=== PATIENT | female | born 1955 | race Caucasian/White ===

== ENCOUNTER 2020-03-27 12:40 | Inpatient (IN) | payer MEDICARE, SELFPAY ==
[~2020-03-27] VITALS: Ht 167.6 cm; Wt 86.2 kg
[~2020-03-27 12:40] MED LIST: OXYBUTYNIN CHLOR5 MG PO
[2020-03-27] MEDS ORDERED: MORPHINE SULFATE 2 MG/ML SYR 1ML IV STA (12:49)
[2020-03-27] MEDS ORDERED: SODIUM CHLORIDE 0.9% 1000ML 1,000 ML IV STA ×2 (12:49→16:02)
[2020-03-27] MEDS ORDERED: ONDANSETRON HCL INJ 2MG/ML 2ML 2 MG/ML VIAL IV STA (12:49)
[2020-03-27] MEDS ORDERED: PANTOPRAZOLE 40 MG 10ML VIAL IV STA (12:49)
[2020-03-27] MEDS ORDERED: PIPER-TAZ 3.375 GM 50 ML IV ONE (13:00)
[2020-03-27 14:20] LABS: BASOPHILS % 0.5 % (0.0-1.0); HEMATOCRIT 40.9 % (34.2-44.1); HEMOGLOBIN 13.1 g/dL (12.0-16.0); LYMPHOCYTES # (AUTO) 0.4 (1.0-3.2); LYMPHOCYTES % 10.2 % (18.0-39.1); MEAN CORPUSCULAR HEMOGLOBIN 29.4 pg (28-32); MEAN CORPUSCULAR VOLUME 91.7 fL (81-99); MONOCYTES # (AUTO) 0.3 (0.2-0.8); MONOCYTES % 6.4 % (4.4-11.3); NEUTROPHILS # (AUTO) 3.5 (2.1-6.9); NEUTROPHILS % 82.4 % (38.7-80.0); PLATELET COUNT 284 x10e3/uL (140-360); RED BLOOD COUNT 4.46 x10e6/uL (3.6-5.1); RED CELL DISTRIBUTION WIDTH 13.2 % (11.7-14.4)
[2020-03-27 14:31] LABS: INR 1.02
[2020-03-27 14:32] LABS: PARTIAL THROMBOPLASTIN TIME 32.7 seconds (23.8-35.5)
[2020-03-27 14:42] LABS: ALANINE AMINOTRANSFERASE 25 IU/L (0-55); ALBUMIN 2.9 g/dL (3.5-5.0); ALBUMIN/GLOBULIN RATIO 0.7 (0.8-2.0); ALKALINE PHOSPHATASE 458 IU/L (40-150); BLOOD UREA NITROGEN 16 mg/dL (7-26); BUN/CREATININE RATIO 11 (6-25); CALCIUM 9.8 mg/dL (8.4-10.2); CARBON DIOXIDE 15 mmol/L (22-29); CHLORIDE 98 mmol/L (98-107); CREATINE KINASE 58 IU/L (29-168); CREATININE, SERUM 1.45 mg/dL (0.57-1.11); EST GLOMERULAR FILTRATION RATE 36 ML/MIN (60-); GLUCOSE 164 mg/dL (74-118); MAGNESIUM 1.8 MG/DL (1.3-2.1); SODIUM 130 mmol/L (136-145)
[2020-03-27 14:46] LABS: LIPASE < 4 U/L (8-78)
[2020-03-27] MEDS ORDERED: DIATRIZOATE MEGL/DIATRIZOA SOD 30 ML BTL PO ONE (14:59)
[2020-03-27 15:11] LABS: BAND NEUTROPHILS % (MANUAL) 7 %; LYMPHOCYTES % (MANUAL) 15 % (19-48); MONOCYTES % (MANUAL) 2 % (3.4-9.0); NEUTROPHILS % (MANUAL) 76 % (40-74); PLATELET ESTIMATE ADEQUATE; PLATELET MORPHOLOGY COMMENT NORMAL; RBC MORPHOLOGY COMMENT NORMAL
--- NOTE | 2020-03-27 16:02 | Diagnostic Imaging Report ---
EXAMINATION: CHEST SINGLE (PORTABLE) INDICATION: ^abd pain ^[id number] ^1500 COMPARISON: 09/03/2013 FINDINGS: AP view TUBES and LINES: None. LUNGS: Lungs are well inflated. There is no evidence of pneumonia or pulmonary edema. PLEURA: No pleural effusion or pneumothorax. HEART AND MEDIASTINUM: The cardiomediastinal silhouette is unremarkable. BONES AND SOFT TISSUES: No acute osseous lesion. Soft tissues are unremarkable. UPPER ABDOMEN: No free air under the diaphragm. IMPRESSION: No acute thoracic abnormality. Signed by: Dr. Bennett Mohr MD on 03/27/2020 3:58 PM
[2020-03-27] MEDS ORDERED: SODIUM CHLORIDE 0.9% 1000ML 1,000 ML ONE ×3 (16:06→19:29)
--- NOTE | 2020-03-27 16:58 | NUR ---
{null, bladder scanner revealed 27 cc urine in bladder }
--- NOTE | 2020-03-27 17:35 | Diagnostic Imaging Report ---
EXAM: CT Abdomen and Pelvis WITHOUT contrast INDICATION: ^N/V, DIFFUSE ABD PAIN ^[id number] ^1610 COMPARISON: None. TECHNIQUE: Abdomen and pelvis were scanned utilizing a multidetector helical scanner from the lung base to the pubic symphysis without administration of IV contrast. Absence of intravenous contrast decreases sensitivity for detection of focal lesions and vascular pathology. Coronal and sagittal reformations were obtained. Routine protocol was performed. IV CONTRAST: None ORAL CONTRAST: Gastrografin COMPLICATIONS: None RADIATION DOSE: Total DLP: 547.4 mGy*cm Estimated effective dose: (DLP x 0.015 x size factor) mSv CTDIvol has been reviewed. It is below the limits set by the Radiation Protocol Committee (RPC). FINDINGS: LINES and TUBES: Tony catheter. LOWER THORAX: Trace pericardial fluid versus thickening. Otherwise, unremarkable. HEPATOBILIARY: Unenhanced liver is unremarkable. No biliary ductal dilation. GALLBLADDER: Distended gallbladder. No radio-opaque stones or sludge. No wall thickening. SPLEEN: No splenomegaly. PANCREAS: Atrophic. No focal masses or ductal dilatation. ADRENALS: No adrenal nodules KIDNEYS/URETERS: Left nephrectomy. Lobulated right renal contour, likely due to areas of scarring, especially in the superior pole. No hydronephrosis. No right renal stone. GI TRACT: No abnormal distention, wall thickening, or evidence of bowel obstruction. Featureless less colon, especially descending colon. Appendix is not clearly visualized. PELVIC ORGANS/BLADDER: Bladder is collapsed by a Tony catheter in place. Hysterectomy. Ill-defined area in the pelvis with thick-walled structure (series 2, image 72) and possible fistulous connection to the adjacent bowel loops (series 2, image 73). LYMPH NODES: No lymphadenopathy. VESSELS: There is mild atherosclerotic disease in the aorta and major arterial branches. PERITONEUM / RETROPERITONEUM: Moderate pneumoperitoneum. Small volume ascites. BONES: Generalized demineralization. SOFT TISSUES: Unremarkable. IMPRESSION: 1. Limited study without intravenous contrast. 2. Moderate pneumoperitoneum without definite identifiable source. The indeterminate thick-walled structure in the pelvis with questionable fistulous connections to the adjacent bowel loops could be the source of pneumoperitoneum. 3. Featureless colon with mild wall thickening, could be related to inflammatory bowel disease. 4. Small volume ascites. 5. Distended gallbladder without radiopaque gallstones or wall thickening. Findings discussed with Dr. Rios at 5:12 PM, on 03/27/2020. Signed by: Dr. Bennett Mohr MD on 03/27/2020 5:31 PM
[2020-03-27] MEDS: METRONIDAZOLE 500MG/NS 100ML 100 ML IV SCH ×2 (17:40→19:07)
[2020-03-27] MEDS ORDERED: MORPHINE SULFATE 2 MG/ML SYR 1ML IV PRN (17:45)
[2020-03-27] MEDS ORDERED: SODIUM CHLORIDE 0.9% 1000ML 1,000 ML IV SCH ×3 (17:45→19:45)
[2020-03-27] MEDS ORDERED: ONDANSETRON HCL INJ 2MG/ML 2ML 2 MG/ML VIAL IV PRN (17:45)
--- OUTSIDE RECORDS SUMMARY | 2020-03-27 17:57 | XMS REPORT ---
Author Author [facility] Organization [facility] Address Unknown Phone Unavailable Care Team Providers Care Remote Sensing Program Manager Name Role Phone Alexis CANNON Unavailable Unavailable Problems This patient has no known problems. Allergies, Adverse Reactions, Alerts This patient has no known allergies or adverse reactions. Medications This patient has no known medications. Results Test Description Test Time Test Comments Text Results Atomic Results Result Comments CT ABDOMEN/PELVIS WO 2020-03-27 17:09:00 [facility] [address] [address] Patient Name: JAMES COX MR #: [id number] : 1955 Age/Sex: 65/F Req #: [id number] Adm Physician: Ordered by: PEG CANNON MD Report #: [id number] Location: ER Room/Bed: Procedure: [id number] CT/CT ABDOMEN/PELVIS WO Exam Date: 03/27/20 Exam Time: 1609 REPORT STATUS: Signed EXAM: CT Abdomen and Pelvis WITHOUT contrast INDICATION: N/V, DIFFUSE ABD PAIN [id number] COMPARISON: None. TECHNIQUE: Abdomen and pelvis were scanned utilizing a multidetector helical scanner from the lung base to the pubic symphysis wit hout administration of IV contrast. Absence of intravenous contrast decreases sensitivity for detection of focal lesions and vascular pathology. Coronal and sagittal reformations were obtained. Routine protocol was performed. IV CONTRAST: None ORAL CONTRAST: Gastrografin COMPLICATIONS: None RADIATION DOSE: Total DLP: 547.4 mGy*cm Estimated effective dose: (DLP x 0.015 x size factor) mSv CTDIvol has been reviewed. It is below the limits set by the Radiation Protocol Committee (RPC). FINDINGS: LINES and TUBES: Tony catheter. LOWER THORAX: Trace pericardial fluid versus thickening. Otherwise, unremarkable. HEPATOBILIARY: Unenhanced liver is unremarkable. No biliary ductal dilation. GALLBLADDER: Distended gallbladder. No radio-opaque stones or sludge. No wall thickening. SPLEEN: No splenomegaly. PANCREAS: Atrophic. No focal masses or ductal dilatation. ADRENALS: No adrenal nodules KIDNEYS/URETERS: Left nephrectomy. Lobulated right renal contour, likely due to areas of scarring, especially in the superior pole. No hydronephrosis. No right renal stone. GI TRACT: No abnormal distention, wall thickening, or evidence of bowel obstruction. Featureless less colon, especially descending colon. Appendix is not clearly visualized. PELVIC ORGANS/BLADDER: Bladd er is collapsed by a Tony catheter in place. Hysterectomy. Ill-defined area in the pelvis with thick-walled structure (series 2, image 72) and possible fistulous connection to the adjacent bowel loops (series 2, image 73). LYMPH NODES: No lymphadenopathy. VESSELS: There is mild atherosclerotic disease in the aorta and major arterial branches. PERITONEUM / RETROPERITONEUM: Moderate pneumoperitoneum. Small volume ascites. BONES: Generalized demineralization. SOFT TISSUES: Unremarkable. IMPRESSION: 1. Limited study without intravenous contrast. 2. Moderate pneumoperitoneum without definite identifiable source. The indeterminate thick-walled structure in the pelvis with questionable fistulous connections to the adjacent bowel loops could be the source of pneumoperitoneum. 3. Featureless colon with mild wall thickening, could be related to inflammatory bowel disease. 4. Small volume ascites. 5. Distended gallbladder without radiopaque gallstones or wall thickening. Findings discussed with Dr. Cannon at 5:12 PM, on 03/27/2020. Signed by: Dr. Bennett Post MD on 03/27/2020 5:31 PM Dictated By: BENNETT POST MD 30 Transcribed By: LUZMARIA on 03/27/201730 COPY TO: PEG CANNON MD CHEST SINGLE (PORTABLE) 2020-03-27 15:58:[address] [address] Patient Name: JAMES COX MR #: [id number] : 1955 Age/Sex: 65/F Req #: [id number] Adm Physician: Ordered by: PEG CANNON MD Report #: [id number] Location: ER Room/Bed: Procedure: [id number] DX/CHEST SINGLE (PORTABLE) Exam Date: 03/27/20 Exam Time: 1500 REPORT STATUS: Signed EXAMINATION: CHEST SINGLE (PORTABLE) INDICATION: abd pain [id number] COMPARISON: 09/03/2013 FINDINGS: AP view TUBES and LINES: None. LUNGS: Lungs are well inflated. There is no evidence of pneumonia or pulmonary edema. PLEURA: No pleural effusion or pneumothorax. HEART AND MEDIASTINUM: The cardiomediastinal silhouette is unremarkable. BONES AND SOFT TISSUES: No acute osseous lesion. Soft tissues are unremarkable. UPPER ABDOMEN: No free air under the diaphragm. IMPRESSION: No acute thoracic abnormality. Signed by: Dr. Bennett Post MD on 03/27/2020 3:58 PM Dictated By: BENNETT POST MD [id number] Transcribed By: LUZMARIA on 03/27/20 [id number] COPY TO: PEG CANNON MD
[2020-03-27] MEDS ORDERED: BENZOCAINE/TETRACAINE/BUTAMBEN AERO SPRAY 56 GM CAN TOP ONE (18:15)
[2020-03-27] MEDS ORDERED: DEXAMETHASONE SOD PHOS INJ 4 MG/ML VIAL ONE (18:24)
[2020-03-27] MEDS ORDERED: ROCURONIUM BROMIDE 10 MG/ML 5ML VIAL IV ONE (18:24)
[2020-03-27] MEDS ORDERED: GLYCOPYRROLATE INJ 0.2 MG/ML VIAL ONE (18:24)
[2020-03-27] MEDS ORDERED: ONDANSETRON HCL INJ 2MG/ML 2ML 2 MG/ML VIAL ONE (18:24)
[2020-03-27] MEDS ORDERED: PROPOFOL IV EMULSION 10 MG/ML 20 ML VIAL ONE (18:24)
[2020-03-27] MEDS ORDERED: BENZOCAINE 20% SPR 60 ML CAN MT ONE (18:30)
--- NOTE | 2020-03-27 18:40 | NUR ---
{null, pt signs consent for exploratory laparotomy, possible bowel resection and possible colostomy per dr. marleny encinas orders }
[2020-03-27] MEDS ORDERED: NOREPINEPHRINE 8 MG/D5W 250 ML 250 ML ONE (19:25)
[2020-03-27 19:28] LABS: BILIRUBIN,URINE MODERATE (NEGATIVE); CLARITY,URINE HAZY (CLEAR); COLOR,URINE YELLOW (YELLOW); KETONES,URINE TRACE (NEGATIVE); LEUKOCYTE ESTERASE ,URINE NEGATIVE (NEGATIVE); NITRITE,URINE NEGATIVE (NEGATIVE); PROTEIN,URINE DIPSTICK >=300 (NEGATIVE); URINE UROBILINOGEN 1 mg/dL (0.2 - 1)
[2020-03-27 19:29] LABS: RBC,URINE >50 /HPF (0-5)
[2020-03-27 19:30] LABS: AMORPHOUS SEDIMENT,URINE MODERATE (FEW); BACTERIA,URINE MODERATE /HPF; EPITHELIAL CELLS,URINE FEW /LPF; MUCUS,URINE MODERATE (RARE)
[2020-03-27 19:33] LABS: AMPHETAMINES SCREEN,URINE NEGATIVE (NEGATIVE); BENZODIAZEPINES SCREEN,URINE POSITIVE (NEGATIVE); PHENCYCLIDINE SCREEN,URINE NEGATIVE (NEGATIVE)
[2020-03-27] MEDS: NOREPINEPHRINE 8 MG/D5W 250 ML 250 ML IV SCH (19:49)
[2020-03-27] MEDS ORDERED: ACETAMINOPHEN 1000 MG/100 ML IV STA (19:52)
[2020-03-27] MEDS: PIPERACILLIN/TAZO 2.25 GM 50 ML IV SCH (20:05)
--- NOTE | 2020-03-27 20:52 | Diagnostic Imaging Report ---
EXAM: Abdomen Radiograph 1 View(s) INDICATION: NG tube placement, verify position COMPARISON: abdominal CT 03/27/2020 FINDINGS: No abnormalities in the lower chest. No lines or tubes. Enteric tube tip terminates in left upper abdomen. No dilated loops of small bowel. No abnormal abdominal calcifications.. No abnormal soft tissue masses. No pneumoperitoneum. No acute osseous abnormality. Mild degenerative changes in the lumbar spine and pelvis. Surgical clips project in the left abdomen. IMPRESSION: Enteric tube tip terminates in left upper abdomen. Signed by: Angel Wall DO on 03/27/2020 8:49 PM
[2020-03-27] MEDS ORDERED: HEPARIN SOD/SOD CHLORIDE 1,000 ML ONE (21:16)
--- NOTE | 2020-03-27 21:28 | NUR ---
{null, Angy Lynne Daughter [phone] Will Lynne Daughters [phone] }
[2020-03-27] MEDS ORDERED: LACTATED RINGER'S 1,000 ML ONE (22:56)
--- NOTE | 2020-03-27 22:58 | NUR ---
{null, Dr. Melendez at the ER bedside. Patient has only made 70 mL's of urine over the course of 4 hours. New orders obtained for LR bolus due to low blood pressure. Will continue to monitor patient closely. }
[2020-03-27] MEDS ORDERED: LACTATED RINGER'S 1,000 ML INJ ONE (23:00)
--- NOTE | 2020-03-27 23:39 | NUR ---
{null, Patient to OR at this time. }
[2020-03-28] VITALS (12 sets, daily range): BP systolic 94–136; BP diastolic 45–77
[2020-03-28] MEDS ORDERED: METRONIDAZOLE 500MG/NS 100ML 100 ML IV ONE ×2 (00:44→05:24)
[2020-03-28] MEDS ORDERED: SODIUM CHLORIDE 0.9% 1000ML 1,000 ML IV SCH (02:30)
[2020-03-28] MEDS ORDERED: ACETAMINOPHEN 1000 MG/100 ML IV PRN (02:30)
[2020-03-28] MEDS: PANTOPRAZOLE 40 MG 10ML VIAL IV SCH (03:00)
[2020-03-28] MEDS: PIPERACILLIN/TAZO 2.25 GM 50 ML IV SCH ×4 (03:00→20:30)
[2020-03-28] MEDS: SODIUM CHLORIDE 0.9% 250ML IRRIG IR SCH ×6 (03:00→23:03)
[2020-03-28] MEDS ORDERED: PIPERACILLIN/TAZO 2.25 GM 50 ML IV ONE ×2 (04:02→20:18)
--- NOTE | 2020-03-28 05:00 | NUR ---
{null, Received patient from OR Stable, no complaints of pain. Settled calmly in bed, saturating well on room air, on Levophed at 10 mcg and NS at 150mls /hr, remains oliguric }
[2020-03-28 05:18] LABS: BASOPHILS % 0.6 % (0.0-1.0); HEMATOCRIT 33.2 % (34.2-44.1); HEMOGLOBIN 10.4 g/dL (12.0-16.0); LYMPHOCYTES # (AUTO) 0.7 (1.0-3.2); LYMPHOCYTES % 14.4 % (18.0-39.1); MEAN CORPUSCULAR HEMOGLOBIN 29.5 pg (28-32); MEAN CORPUSCULAR HGB CONC 31.3 g/dL (31-35); MEAN CORPUSCULAR VOLUME 94.3 fL (81-99); MONOCYTES # (AUTO) 0.3 (0.2-0.8); MONOCYTES % 5.8 % (4.4-11.3); NEUTROPHILS # (AUTO) 3.8 (2.1-6.9); NEUTROPHILS % 77.6 % (38.7-80.0); PLATELET COUNT 240 x10e3/uL (140-360); RED BLOOD COUNT 3.52 x10e6/uL (3.6-5.1); RED CELL DISTRIBUTION WIDTH 13.7 % (11.7-14.4)
[2020-03-28] MEDS: METRONIDAZOLE 500MG/NS 100ML 100 ML IV SCH ×4 (05:30→18:00)
[2020-03-28 05:46] LABS: ALBUMIN 1.7 g/dL (3.5-5.0); ALBUMIN/GLOBULIN RATIO 0.6 (0.8-2.0); ANION GAP 11.4 mmol/L (8-16); CREATININE, SERUM 1.57 mg/dL (0.57-1.11); POTASSIUM 4.4 mmol/L (3.5-5.1)
--- NOTE | 2020-03-28 05:46 | NUR ---
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 Currently in some pain. Stable, but on pressor. PMH: cervical cancer s/p XRT,s/p left nephrectomy in 1998, current smoker PSHx: left nephrectomy 1998 Allergies; see emr FH/SH; 1/2ppd cigs; no illicits meds; see MAR ROS: no f/c/s/STEWART/cp/skin rash/back pain/dizziness/focal limb weakness/confusion v/s; revd PE tired appearing anicteric ns1s2 mod bs soft nd; dressing in midline; ROSS drain in place; colostomy in place; ROSS drain in place; no leg edema a&ox3; [facility] labs/meds revd A/P: 65yoF Rupture of Sigmoid colon- s/p surgical resection and colostomy placement Septic shock- pressors; ivf; iv abx; Hyponatremia- rehydrate NISHI- rehydrate Metabolic acidosis - rehydrate Hyperglycemia- screen for DM Overweight- as above BMI 29.1 Prop: ppi; scd dispo: cct>35mins Damaso Palma MD, PHD. }
[2020-03-28 05:49] LABS: CALCIUM 6.9 mg/dL (8.4-10.2)
[2020-03-28] MEDS: INSULIN REGULAR, HUMAN 100 UNIT/1 ML 3ML VIAL SQ SCH ×3 (06:00→18:00)
--- NOTE | 2020-03-28 06:00 | NUR ---
{null, Alert and oriented off the restraints, remains stable no complaints raised. }
[2020-03-28 06:45] LABS: CHOLESTEROL 59 MD/DL (0-199); HDL CHOLESTEROL < 5 MG/DL (40-60); LDL CHOLESTEROL 33 MG/DL (60-130); TRIGLYCERIDES 105 MG/DL (0-149)
[2020-03-28 08:34] LABS: BAND NEUTROPHILS % (MANUAL) 6 %; LYMPHOCYTES % (MANUAL) 15 % (19-48); MONOCYTES % (MANUAL) 4 % (3.4-9.0); NEUTROPHILS % (MANUAL) 75 % (40-74); PLATELET ESTIMATE ADEQUATE; PLATELET MORPHOLOGY COMMENT NORMAL; RBC MORPHOLOGY COMMENT NORMAL
[2020-03-28] MEDS: SODIUM BICARBONATE 8.4% 150 ML in DEXTROSE 5% 1,000 ML IV SCH ×2 (09:00→17:55)
[2020-03-28] MEDS ORDERED: FUROSEMIDE INJ 10 MG/ML 4 ML VIAL IV ONE (09:00)
--- NOTE | 2020-03-28 13:19 | Diagnostic Imaging Report ---
EXAMINATION: Renal ultrasound. CLINICAL HISTORY :Evaluate catheter COMPARISON: None TECHNIQUE: Grayscale and color Doppler evaluation of the kidneys and bladder was performed in transverse and longitudinal planes. DISCUSSION: RIGHT KIDNEY: The right kidney measures 13.6 cm in length and shows normal echogenicity. No hydronephrosis, shadowing calculi or solid mass lesions. LEFT KIDNEY: The left renal fossa is empty BLADDER: The bladder is nondistended. Catheter not well visualized. IMPRESSION: Normal ultrasound of the right kidney. Decompressed bladder. The catheter is not well visualized. Signed by: Dr. Shin Suggs M.D. on 03/28/2020 2:36 PM
[2020-03-28] MEDS ORDERED: CALCIUM GLUCONATE 10% INJ 13.95 MEQ in SODIUM CHLORIDE 0.9% 100 ML 100 ML IV ONE (13:30)
[2020-03-28] MEDS: IPRATROPIUM BROMIDE 0.02% 2.5 ML NEB NEB SCH ×2 (13:35→19:40)
[2020-03-28] MEDS ORDERED: FENTANYL CITRATE/PF 100MCG/2 ML INJ ONE (13:49)
[2020-03-28 15:34] LABS: ANION GAP 14.8 mmol/L (8-16); CALCIUM 7.4 mg/dL (8.4-10.2); CREATININE, SERUM 1.73 mg/dL (0.57-1.11); MAGNESIUM 1.5 MG/DL (1.3-2.1); PHOSPHORUS 3.5 MG/DL (2.3-4.7); POTASSIUM 3.8 mmol/L (3.5-5.1)
--- NOTE | 2020-03-28 17:31 | Consultation ---
DATE OF CONSULTATION: Pulmonary Consultation Patient of Dr. Melendez, Dr. Palma, Dr. Son Ku. 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 She has a history of remote cervical cancer in 1998, treated with radiation, Dr. Brower. History of degenerative arthritis, schedule for knee surgery next week. No allergy to lithium. Only medications are oxybutynin for urinary urgency. She had a left nephrectomy presumably for chronically infected kidney, requiring chronic nephrostomy drainage. She has had renal stones in the past. FAMILY HISTORY: Positive for cancer. SOCIAL HISTORY: She continues to smoke despite the admonitions of her physician. Born in [place]. PHYSICAL EXAMINATION: VITAL SIGNS: Temperature on admission was 101.9. GENERAL: Well-developed white female, pale. HEAD: Normocephalic, atraumatic. EYES: Extraocular movements intact. LUNGS: Diminished breath sounds. HEART: Regular rhythm. ABDOMEN: Tender. Colostomy noted. Midline surgical scar wound. EXTREMITIES: Nonedematous. Tony in place. NG tube. IMPRESSION: Perforated colon with fecal soilage, status post colectomy and Silver's pouch. 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 PLAN: Supportive care. Antibiotics, IV fluids, weaning, antismoking help, incentive spirometry, p.r.n. albuterol, scheduled ipratropium. Thank you for this kind referral. Son Tinoco MD DS/MODL /[id number]
--- NOTE | 2020-03-28 18:11 | Consultation ---
DATE OF CONSULTATION: Renal Consultation Thank you for the consultation. HISTORY OF PRESENT ILLNESS: Ms. Rowe is a pleasant 65-year-old female with a past medical history significant for prior history of having had a left-sided nephrectomy for what appears to be probable renal cell carcinoma, came into the hospital with abdominal pain, vomiting. CT scan abdomen and pelvis was shown to have evidence of a bowel perforation. The patient subsequently underwent a colectomy and now has a colostomy bag. The patient subsequently has been in the ICU, creatinine was found to be 1.5 postoperatively as only a solitary kidney. Also, found to have metabolic acidosis with bicarb of 15. Renal consultation has been asked for the management of her, what appears to be [id number] kidney disease, as well as metabolic acidosis. Currently, no fever, no chills, no nausea, no vomiting. No diarrhea. Has urine output with external catheter. PAST MEDICAL HISTORY: As outlined above. No notice has any history of diabetes or hypertension, although blood sugars were elevated and there is possibility that she does have possible diabetes mellitus in the outpatient setting. ALLERGIES: LITHIUM. SOCIAL HISTORY: No tobacco. No alcohol use. FAMILY HISTORY: Noncontributory. REVIEW OF SYSTEMS: See HPI. Otherwise, all systems negative. MEDICATIONS: Reviewed per chart. PHYSICAL EXAMINATION: VITAL SIGNS: Blood pressure is 129/67, 18 respiration, 96 pulse. The patient is afebrile. HEENT: No cervical lymphadenopathy. NECK: Supple without masses. No obvious JVD. Moist appearing oral mucosa. SKIN: Moist with good skin turgor. CHEST WALL: Good expansion. No chest wall tenderness. LUNGS: Clear to auscultation bilaterally. CARDIOVASCULAR: S1, S2. No nausea or murmur. ABDOMEN: Soft. Positive bowel sounds. Nontender. ABDOMEN: Soft. Diminished bowel sounds. No organomegaly. EXTREMITIES: There is no evidence of lower extremity edema. No clubbing. No cyanosis. NEUROLOGIC: Awake, alert, responsive, and oriented x3, grossly generalized weakness, otherwise nonfocal exam. LABORATORY DATA: As follows; sodium 135, potassium 4.4, chloride 113, bicarb of 15, BUN 17, creatinine is 1.6, glucose 130, calcium is 6.9. Lactic acid repeated was 1.9, initially was 2.8 which is high. H and H are 10.4 and 33.2. IMPRESSION AND PLAN: 1. Acute kidney injury on chronic kidney disease, suspected baseline has chronic kidney disease. Unclear whether baseline chronic kidney disease is at stage III or higher. For now, the patient may have developed acute kidney injury secondary to the patient developing perforated viscus, status post colectomy and a colostomy bag is in place. I would place the patient on IV fluid, the D5 water plus 3 amps of bicarb, which is 150 mEq and run it on 150 mL/h for now. We will continue to monitor closely for progress in improvement in the metabolic acidosis, improvement in kidney function. We will make further recommendations. For now, does not appear fluid overloaded despite the fact that she has some mild lower extremity edema. We will continue to monitor closely. Make further recommendations. Avoid potential nephrotoxic agents. Avoid KATHY inhibitors, ARB, nonsteroidal anti-inflammatory drugs, and IV dye. Repeat labs in morning including basic metabolic panel, mag, phos, CBC. We will get urine electrolytes and we will also get a baseline renal ultrasound to follow up on solitary kidney. 2. Hypertension. Blood pressure is currently stable. Continue to avoid blood pressure lowering medications. 3. Metabolic acidosis is likely secondary to the patient developing bowel ischemia. Would continue with IV fluids with bicarb drip as outlined above and we will change IV fluids based on the response to the bicarb drip and improvement in the metabolic acidosis. Thank you once again for the consultation. We will follow the patient closely along with you and make further recommendation. Loki Kerr MD TH/MODL /[id number] cc: Neil Melendez MD
--- NOTE | 2020-03-28 19:30 | NUR ---
{null, Received patient hemodynamically stable, no complaints raised }
[2020-03-28] MEDS: NOREPINEPHRINE 8 MG/D5W 250 ML 250 ML IV SCH (19:45)
[2020-03-28] MEDS: HYDROMORPHONE 1MG/1ML INJ IV PRN (20:15)
--- NOTE | 2020-03-28 23:00 | NUR ---
{null, Reviewed by Dr Melendez, to remain strictly NPO, patient informed. Off Levophed, remains stable }
[2020-03-29] VITALS (23 sets, daily range): BP systolic 95–124; BP diastolic 42–81
[2020-03-29] MEDS ORDERED: METRONIDAZOLE 500MG/NS 100ML 100 ML IV ONE ×2 (00:22→05:32)
[2020-03-29] MEDS: SODIUM BICARBONATE 8.4% 150 ML in DEXTROSE 5% 1,000 ML IV SCH ×4 (00:27→23:00)
[2020-03-29] MEDS: METRONIDAZOLE 500MG/NS 100ML 100 ML IV SCH ×4 (00:27→20:15)
[2020-03-29] MEDS: HYDROMORPHONE 1MG/1ML INJ IV PRN ×5 (00:39→20:16)
[2020-03-29] MEDS: IPRATROPIUM BROMIDE 0.02% 2.5 ML NEB NEB SCH ×4 (01:10→19:47)
[2020-03-29] MEDS: SODIUM CHLORIDE 0.9% 250ML IRRIG IR SCH ×6 (02:30→22:19)
[2020-03-29] MEDS: PIPERACILLIN/TAZO 2.25 GM 50 ML IV SCH ×4 (03:00→20:15)
[2020-03-29] MEDS: PANTOPRAZOLE 40 MG 10ML VIAL IV SCH (03:43)
[2020-03-29] MEDS ORDERED: PIPERACILLIN/TAZO 2.25 GM 50 ML IV ONE (03:50)
[2020-03-29 05:16] LABS: BASOPHILS # (AUTO) 0.1 (0.0-0.1); BASOPHILS % 1.1 % (0.0-1.0); EOSINOPHILS # (AUTO) 0.1 (0.0-0.4); EOSINOPHILS % 0.7 % (0.0-6.0); HEMATOCRIT 25.7 % (34.2-44.1); HEMOGLOBIN 8.5 g/dL (12.0-16.0); LYMPHOCYTES # (AUTO) 0.9 (1.0-3.2); LYMPHOCYTES % 12.5 % (18.0-39.1); MEAN CORPUSCULAR HEMOGLOBIN 29.9 pg (28-32); MEAN CORPUSCULAR HGB CONC 33.1 g/dL (31-35); MEAN CORPUSCULAR VOLUME 90.5 fL (81-99); MONOCYTES # (AUTO) 0.1 (0.2-0.8); MONOCYTES % 1.6 % (4.4-11.3); NEUTROPHILS # (AUTO) 5.7 (2.1-6.9); NEUTROPHILS % 82.1 % (38.7-80.0); PLATELET COUNT 190 x10e3/uL (140-360); RED BLOOD COUNT 2.84 x10e6/uL (3.6-5.1); RED CELL DISTRIBUTION WIDTH 13.7 % (11.7-14.4)
[2020-03-29 05:45] LABS: ALBUMIN 1.5 g/dL (3.5-5.0); ALBUMIN/GLOBULIN RATIO 0.5 (0.8-2.0); ANION GAP 12.2 mmol/L (8-16); CALCIUM 7.8 mg/dL (8.4-10.2); CREATININE, SERUM 1.55 mg/dL (0.57-1.11); MAGNESIUM 1.5 MG/DL (1.3-2.1); PHOSPHORUS 2.4 MG/DL (2.3-4.7); POTASSIUM 3.2 mmol/L (3.5-5.1)
[2020-03-29] MEDS: INSULIN REGULAR, HUMAN 100 UNIT/1 ML 3ML VIAL SQ SCH ×4 (06:00→16:31)
[2020-03-29] MEDS: ALBUTEROL SULF 0.083% NEB SOLN 3 ML NEB NEB PRN (07:10)
[2020-03-29 08:37] LABS: BAND NEUTROPHILS % (MANUAL) 9 %; EOSINOPHILS % (MANUAL) 2 % (0-7); LYMPHOCYTES % (MANUAL) 19 % (19-48); MONOCYTES % (MANUAL) 1 % (3.4-9.0); NEUTROPHILS % (MANUAL) 69 % (40-74); PLATELET ESTIMATE ADEQUATE; PLATELET MORPHOLOGY COMMENT NORMAL; RBC MORPHOLOGY COMMENT NORMAL
[2020-03-29] MEDS: NICOTINE 14 MG/EA PATCH TOP SCH (09:01)
[2020-03-29] MEDS: ONDANSETRON HCL INJ 2MG/ML 2ML 2 MG/ML VIAL IV PRN ×2 (09:22→14:12)
--- NOTE | 2020-03-29 09:23 | Diagnostic Imaging Report ---
EXAM: CHEST SINGLE (PORTABLE) DATE: 03/29/2020 5:40 AM INDICATION: Shortness of breath COMPARISON: 03/27/2020 FINDINGS/IMPRESSION: Right IJ central venous catheter identified with distal tip superimposed over the SVC. Enteric tube noted coursing below the diaphragm. The trachea is midline. There are mildly increased opacities within the right lower lungs which may reflect atelectasis. A developing airspace process and/or small effusion cannot be entirely excluded by the on the basis of this examination. There is no evidence for large focal consolidation, pneumothorax, or significant pleural effusion. The cardiomediastinal silhouette is stable in appearance. No acute osseous abnormality is identified. Signed by: Dr. Cam Vital MD on 03/29/2020 9:20 AM
[2020-03-29 09:43] LABS: % IRON SATURATION 10 % (15-50); IRON 11 ug/dL (50-170); TOTAL IRON BINDING CAPACITY 115 ug/dL (261-478); TRANSFERRIN 82 mg/dL (180-382)
[2020-03-29] MEDS: POTASSIUM CHLORIDE 20MEQ/100ML 100 ML IV PRN (09:54)
--- NOTE | 2020-03-29 10:55 | NUR ---
{null, IM- progress noge o/n see below ROS: no f/c/s/STEWART/cp/skin rash/back pain/dizziness/focal limb weakness/confusion v/s; revd PE tired appearing anicteric ns1s2 mod bs soft nd; dressing in midline; ROSS drain in place; colostomy in place; ROSS drain in place; no leg edema a&ox3; [facility] labs/meds revd A/P: 65yoF Rupture of Sigmoid colon- s/p surgical resection and colostomy placement Septic shock- pressors; ivf; iv abx; Hyponatremia- rehydrate NISHI- rehydrate Metabolic acidosis - rehydrate Hyperglycemia- screen for DM Overweight- as above BMI 29.1 Prop: ppi; scd dispo: cct>35mins 5-11 COVID19 NEgative; cont LWC; cont IV abx in ICU; Replace K; renal fn about same; use nicotine patch; cct>35mins Damaso Palma MD, PHD. }
--- NOTE | 2020-03-29 15:10 | Progress Note ---
DATE: 03/29/2020 Nephrology Progress Note SUBJECTIVE: Followed for acute on chronic kidney disease, solitary kidney. Status post colectomy for perforated viscus. Still has an NG tube in. Feels better. N.p.o. yet. OBJECTIVE: VITAL SIGNS: Blood pressure 103/52, pulse 90 per minute, oxygen saturation 100% on room air. NECK: Supple without jugular venous distention. CHEST: Bilateral air entry symmetrically. No respiratory distress. CARDIOVASCULAR: S1, S2. ABDOMEN: Soft, postoperative. EXTREMITIES: Without pitting edema or cyanosis. NEUROLOGIC: She is alert and oriented. STUDIES: Chest x-ray report read. Mildly increased opacities within the right lower lung, which may reflect atelectasis. LABORATORY DATA: Hemoglobin 8.5, white count normal. Potassium 3.2, BUN 22, creatinine improved at 1.5, total calcium 7.8, albumin of 1.5. Urinalysis shows 3+ protein, greater than 50 red cells and 6-10 white cells. ASSESSMENT: 1. Acute kidney injury, postoperatively. Resolved with IV hydration. 2. Probable chronic kidney disease stage 3 following remote nephrectomy for renal cell carcinoma. 3. Metabolic acidosis, on IV bicarbonate infusion. 4. Anemia, possibly secondary to chronic kidney disease. RECOMMENDATION: 1. Continue present IV fluid for now, until patient is able to take by mouth. 2. Replace potassium IV, already done. 3. Continue to trend daily renal function. Tad Sharma MD [facility]/MODL /[id number]
[2020-03-29] MEDS: NOREPINEPHRINE 8 MG/D5W 250 ML 250 ML IV SCH (19:38)
[2020-03-30] VITALS (17 sets, daily range): BP systolic 103–149; BP diastolic 59–88
[2020-03-30] MEDS: HYDROMORPHONE 1MG/1ML INJ IV PRN ×4 (00:30→23:58)
[2020-03-30] MEDS: IPRATROPIUM BROMIDE 0.02% 2.5 ML NEB NEB SCH ×4 (01:15→19:42)
[2020-03-30] MEDS: METRONIDAZOLE 500MG/NS 100ML 100 ML IV SCH ×4 (02:00→20:30)
[2020-03-30] MEDS: PANTOPRAZOLE 40 MG 10ML VIAL IV SCH (03:00)
[2020-03-30] MEDS: SODIUM CHLORIDE 0.9% 250ML IRRIG IR SCH ×6 (03:00→22:30)
[2020-03-30] MEDS: PIPERACILLIN/TAZO 2.25 GM 50 ML IV SCH ×4 (03:00→20:30)
[2020-03-30 05:45] LABS: BASOPHILS % 0.2 % (0.0-1.0); HEMATOCRIT 24.6 % (34.2-44.1); HEMOGLOBIN 8.2 g/dL (12.0-16.0); LYMPHOCYTES # (AUTO) 1.4 (1.0-3.2); LYMPHOCYTES % 16.1 % (18.0-39.1); MEAN CORPUSCULAR HEMOGLOBIN 29.4 pg (28-32); MEAN CORPUSCULAR HGB CONC 33.3 g/dL (31-35); MEAN CORPUSCULAR VOLUME 88.2 fL (81-99); MONOCYTES # (AUTO) 0.1 (0.2-0.8); MONOCYTES % 1.3 % (4.4-11.3); NEUTROPHILS # (AUTO) 7.1 (2.1-6.9); NEUTROPHILS % 81.6 % (38.7-80.0); PLATELET COUNT 190 x10e3/uL (140-360); RED BLOOD COUNT 2.79 x10e6/uL (3.6-5.1); RED CELL DISTRIBUTION WIDTH 13.6 % (11.7-14.4)
[2020-03-30] MEDS: INSULIN REGULAR, HUMAN 100 UNIT/1 ML 3ML VIAL SQ SCH ×4 (06:00→18:00)
[2020-03-30 06:05] LABS: ALBUMIN 1.5 g/dL (3.5-5.0); ALBUMIN/GLOBULIN RATIO 0.5 (0.8-2.0); ANION GAP 11.9 mmol/L (8-16); CALCIUM 7.8 mg/dL (8.4-10.2); CREATININE, SERUM 1.28 mg/dL (0.57-1.11)
[2020-03-30 06:11] LABS: POTASSIUM 2.9 mmol/L (3.5-5.1)
[2020-03-30] MEDS: POTASSIUM CHLORIDE 20MEQ/100ML 100 ML IV PRN (07:02)
--- NOTE | 2020-03-30 07:07 | Diagnostic Imaging Report ---
EXAMINATION: CHEST SINGLE (PORTABLE) INDICATION: ^icu post-op ^[id number] ^0520 COMPARISON: 03/29/2020 FINDINGS: AP view TUBES and LINES: Unchanged right internal jugular vein central venous catheter. Unchanged partially visualized nasogastric tube. LUNGS: Unchanged bibasilar opacities, likely passive atelectasis. PLEURA: Unchanged linear pleural effusions, right greater than left. HEART AND MEDIASTINUM: The cardiomediastinal silhouette is unchanged. Central pulmonary venous congestion. BONES AND SOFT TISSUES: No acute osseous lesion. Soft tissues are unremarkable. UPPER ABDOMEN: No free air under the diaphragm. IMPRESSION: Stable exam. Unchanged bilateral layering pleural effusions, right greater than left, with passive atelectasis. Signed by: Zak Edward MD on 03/30/2020 7:04 AM
[2020-03-30] MEDS: SODIUM BICARBONATE 8.4% 150 ML in DEXTROSE 5% 1,000 ML IV SCH (07:25)
[2020-03-30] MEDS: ALBUTEROL SULF 0.083% NEB SOLN 3 ML NEB NEB PRN (07:45)
[2020-03-30] MEDS ORDERED: POTASSIUM CHLORIDE 20MEQ/100ML 100 ML IV ONE (08:30)
[2020-03-30] MEDS: NICOTINE 14 MG/EA PATCH TOP SCH (09:15)
[2020-03-30] MEDS: IRON SUCROSE 100 MG in SODIUM CHLORIDE 0.9% 100 ML 100 ML IV SCH (10:34)
--- NOTE | 2020-03-30 11:29 | NUR ---
{null, IM- progress noge o/n see below ROS: no f/c/s/STEWART/cp/skin rash/back pain/dizziness/focal limb weakness/confusion v/s; revd PE tired appearing anicteric ns1s2 mod bs soft nd; dressing in midline; ROSS drain in place; colostomy in place; ROSS drain in place; no leg edema a&ox3; [facility] labs/meds revd A/P: 65yoF Rupture of Sigmoid colon- s/p surgical resection and colostomy placement Septic shock- pressors; ivf; iv abx; Hyponatremia- rehydrate NISHI- rehydrate Metabolic acidosis - rehydrate Hyperglycemia- screen for DM Overweight- as above BMI 29.1 Prop: ppi; scd dispo: cct>35mins 5-11 COVID19 NEgative; cont LWC; cont IV abx in ICU; Replace K; renal fn about same; use nicotine patch; cct>35mins 5-12 Replace K; recheck BMP at 4pm; doing well; remains with NGT; pain controlled; Damaso Palma MD, PHD. }
[2020-03-30] MEDS: ONDANSETRON HCL INJ 2MG/ML 2ML 2 MG/ML VIAL IV PRN ×2 (12:50→18:29)
[2020-03-30 13:02] LABS: EOSINOPHILS % (MANUAL) 1 % (0-7); LYMPHOCYTES % (MANUAL) 18 % (19-48); MONOCYTES % (MANUAL) 1 % (3.4-9.0); NEUTROPHILS % (MANUAL) 80 % (40-74)
[2020-03-30] MEDS: DEXTROSE 5%/0.45% SOD CHL 1,000 ML IV SCH (13:44)
--- NOTE | 2020-03-30 14:35 | Progress Note ---
DATE: 03/30/2020 Nephrology Progress Note SUBJECTIVE: Followed up for acute kidney injury on probable underlying chronic kidney disease stage 3. The patient is gradually recovering from surgery. Now taking some by mouth. No shortness of breath. NG tube is in place. OBJECTIVE: VITAL SIGNS: Blood pressure 126/86, pulse 90 per minute, oxygen saturation 99% on 2 L nasal cannula. NECK: Supple without jugular venous distention. CHEST: Bilateral air entry without respiratory effort. No wheezing heard. CARDIOVASCULAR: S1, S2. ABDOMEN: Postop. EXTREMITIES: Without pitting edema or cyanosis. NEUROLOGIC: Alert and oriented x3. LABORATORY DATA: Potassium is low at 2.9, creatinine improved at 1.28. BUN 16, bicarb up to 37. IMPRESSION: 1. Acute kidney injury, postoperatively. Appears resolved with IV hydration. 2. Probable underlying chronic kidney disease stage 3 following remote nephrectomy for renal-cell carcinoma. 3. Metabolic alkalosis, secondary to IV bicarbonate infusion. 4. Anemia. RECOMMENDATIONS: 1. Change sodium bicarbonate containing IV fluids to D5 half-normal saline at 100 mL/h. 2. Agree with IV potassium replacement with recheck at 4:00 p.m. today. 3. Continue to trend daily renal function. Tad Sharma MD [facility]/MODL /[id number]
[2020-03-30 17:12] LABS: ANION GAP 11.5 mmol/L (8-16); CALCIUM 7.9 mg/dL (8.4-10.2); CREATININE, SERUM 1.18 mg/dL (0.57-1.11)
[2020-03-30 17:15] LABS: POTASSIUM 5.5 mmol/L (3.5-5.1)
--- NOTE | 2020-03-30 20:50 | NUR ---
{null, PT TRANSFERED TO [employer]. REPORT GIVEN TO ARLENE }
[2020-03-31] VITALS (8 sets, daily range): BP systolic 117–167; BP diastolic 21–99
[2020-03-31] MEDS: IPRATROPIUM BROMIDE 0.02% 2.5 ML NEB NEB SCH ×4 (00:50→19:55)
[2020-03-31] MEDS: METRONIDAZOLE 500MG/NS 100ML 100 ML IV SCH ×4 (02:00→20:21)
[2020-03-31] MEDS: PIPERACILLIN/TAZO 2.25 GM 50 ML IV SCH ×4 (02:00→20:21)
[2020-03-31] MEDS: SODIUM CHLORIDE 0.9% 250ML IRRIG IR SCH ×4 (02:30→15:26)
[2020-03-31] MEDS: PANTOPRAZOLE 40 MG 10ML VIAL IV SCH (03:00)
[2020-03-31] MEDS: HYDROMORPHONE 1MG/1ML INJ IV PRN ×5 (04:17→20:30)
[2020-03-31] MEDS: INSULIN REGULAR, HUMAN 100 UNIT/1 ML 3ML VIAL SQ SCH ×4 (05:36→17:33)
[2020-03-31 06:18] LABS: BASOPHILS # (AUTO) 0.1 (0.0-0.1); BASOPHILS % 0.5 % (0.0-1.0); EOSINOPHILS # (AUTO) 0.2 (0.0-0.4); HEMATOCRIT 28.2 % (34.2-44.1); HEMOGLOBIN 9.1 g/dL (12.0-16.0); LYMPHOCYTES # (AUTO) 1.8 (1.0-3.2); LYMPHOCYTES % 15.2 % (18.0-39.1); MEAN CORPUSCULAR HEMOGLOBIN 29.4 pg (28-32); MEAN CORPUSCULAR HGB CONC 32.3 g/dL (31-35); MEAN CORPUSCULAR VOLUME 91.3 fL (81-99); MONOCYTES # (AUTO) 0.4 (0.2-0.8); MONOCYTES % 3.2 % (4.4-11.3); NEUTROPHILS # (AUTO) 8.8 (2.1-6.9); NEUTROPHILS % 75.7 % (38.7-80.0); PLATELET COUNT 219 x10e3/uL (140-360); RED BLOOD COUNT 3.09 x10e6/uL (3.6-5.1); RED CELL DISTRIBUTION WIDTH 14.1 % (11.7-14.4)
[2020-03-31 06:32] LABS: ALBUMIN 1.6 g/dL (3.5-5.0); ALBUMIN/GLOBULIN RATIO 0.5 (0.8-2.0); ANION GAP 11.4 mmol/L (8-16); CALCIUM 7.7 mg/dL (8.4-10.2); CREATININE, SERUM 1.07 mg/dL (0.57-1.11); POTASSIUM 3.4 mmol/L (3.5-5.1)
--- NOTE | 2020-03-31 07:00 | NUR ---
{null, Received bedside shift report from off going nurse. Patient in cleopatra condition, no s/s of distress noted. Transparent dressings at IV sites C/D/I. Telemetry applied and working. Left nare NG tube to Low Intermitted Wall Suction. Bed in lowest position and locked. Call light within reach. }
--- NOTE | 2020-03-31 07:19 | Diagnostic Imaging Report ---
EXAMINATION: CHEST SINGLE (PORTABLE) INDICATION: ^icu post-op ^[id number] ^0500 COMPARISON: 03/30/2020 FINDINGS: AP view TUBES and LINES: Unchanged right IJ central line and nasogastric tube. LUNGS: Unchanged bilateral lower lung opacities, likely atelectasis. No new lung consolidation. PLEURA: Unchanged layering pleural effusions, right greater than left. No pneumothorax. HEART AND MEDIASTINUM: The cardiomediastinal silhouette is unchanged. BONES AND SOFT TISSUES: No acute osseous lesion. Soft tissues are unremarkable. UPPER ABDOMEN: No free air under the diaphragm. IMPRESSION: Stable exam. Unchanged bilateral pleural effusions, right greater than left, with associated basilar atelectasis. Signed by: Zak Edward MD on 03/31/2020 7:15 AM
[2020-03-31] MEDS: ALBUTEROL SULF 0.083% NEB SOLN 3 ML NEB NEB PRN (08:15)
[2020-03-31] MEDS: NICOTINE 14 MG/EA PATCH TOP SCH (08:40)
--- NOTE | 2020-03-31 10:05 | NUR ---
{null, Pt. expressed no spiritual or emotional concerns. Sports Administrator provided hospitality and information on how to reach voice over announcer, if needed. No needs to follow at this time. MAX STODDARD Sports Administrator Spiritual Care Department O: [phone] }
[2020-03-31] MEDS: IRON SUCROSE 100 MG in SODIUM CHLORIDE 0.9% 100 ML 100 ML IV SCH (10:58)
--- NOTE | 2020-03-31 12:33 | Progress Note ---
DATE: 03/31/2020 Nephrology Progress Note SUBJECTIVE: Followed up for acute kidney injury. The patient continues slow recovery from surgery. Denies any nausea or shortness of breath. OBJECTIVE: GENERAL: Appears reasonably comfortable. VITAL SIGNS: Stable. NECK: Supple without jugular venous distention. CHEST: Bilateral air entry without extra respiratory effort. No wheezing heard. CARDIOVASCULAR: S1 and S2. ABDOMEN: Postop. EXTREMITIES: Without pitting edema or cyanosis. NEUROLOGICAL: Alert and oriented x3. LABORATORY DATA: Hemoglobin 9.1, white count 11.6, and normal platelet count. Creatinine 1.07, BUN 10, and potassium 3.4. Calcium 7.7 and albumin 1.6. IMPRESSION: 1. Acute kidney injury, resolving with hydration. a. Continue current IV fluids with D5 and a half normal saline. 2. Hypokalemia, replaced IV. 3. Metabolic acidosis, resolved. 4. Possible underlying chronic kidney disease, stage 3. RECOMMENDATIONS: 1. Continue to trend renal function daily. 2. Continue IV fluid until oral intake is established. 3. Replace potassium p.r.n. Tad Sharma MD [facility] /[id number]
--- NOTE | 2020-03-31 13:09 | NUR ---
{null, WOUND CARE CONSULT FOR SCREENING R/T 14 RETA CARL PRESSURE RELATED WOUNDS RECORDED NURSING MAINTAINING MODERATE PUP STATUS AND INTERVENTIONS Addendum: 03/31/20 at 1309 by Oscar Costa RN Amended: Links added. }
--- NOTE | 2020-03-31 15:31 | NUR ---
{null, IM- progress noge o/n see below ROS: no f/c/s/STEWART/cp/skin rash/back pain/dizziness/focal limb weakness/confusion v/s; revd PE tired appearing anicteric ns1s2 mod bs soft nd; dressing in midline; ROSS drain in place; colostomy in place; ROSS drain in place; no leg edema a&ox3; [facility] labs/meds revd A/P: 65yoF Rupture of Sigmoid colon- s/p surgical resection and colostomy placement Septic shock- pressors; ivf; iv abx; Hyponatremia- rehydrate NISHI- rehydrate Metabolic acidosis - rehydrate Hyperglycemia- screen for DM Overweight- as above BMI 29.1 Prop: ppi; scd dispo: cct>35mins 5-11 COVID19 NEgative; cont LWC; cont IV abx in ICU; Replace K; renal fn about same; use nicotine patch; cct>35mins 5-12 Replace K; recheck BMP at 4pm; doing well; remains with NGT; pain controlled; 5-13 replace K; cont care; doing well; Damaso Palma MD, PHD. }
[2020-03-31] MEDS ORDERED: LIBRAX CAPSULE1 EACH PO (15:37)
[2020-03-31] MEDS ORDERED: POTASSIUM CHLORIDE 20 MEQ TAB CR PO NR (15:45)
[2020-03-31] MEDS ORDERED: POTASSIUM CHLORIDE 20MEQ/100ML 100 ML IV ONE (16:15)
--- NOTE | 2020-03-31 17:58 | NUR ---
{null, Removed NG tube from the left nare, patient tolerated the removal. No discomfort noted. }
--- NOTE | 2020-03-31 19:15 | NUR ---
{null, Patient in stable condition, no s/s of distress noted. Transparent dressings at IV sites C/D/I. Telemetry applied and working. Bed in lowest position and locked. Call light within reach. }
[2020-03-31] MEDS: DEXTROSE 5%/0.45% SOD CHL 1,000 ML IV SCH (20:21)
[2020-03-31] MEDS: ONDANSETRON HCL INJ 2MG/ML 2ML 2 MG/ML VIAL IV PRN (20:30)
[2020-04-01] VITALS (7 sets, daily range): BP systolic 112–147; BP diastolic 57–72
[2020-04-01] MEDS: ONDANSETRON HCL INJ 2MG/ML 2ML 2 MG/ML VIAL IV PRN ×2 (00:09→04:45)
[2020-04-01] MEDS: HYDROMORPHONE 1MG/1ML INJ IV PRN ×6 (00:09→21:36)
[2020-04-01] MEDS: IPRATROPIUM BROMIDE 0.02% 2.5 ML NEB NEB SCH ×4 (01:55→20:15)
[2020-04-01] MEDS: METRONIDAZOLE 500MG/NS 100ML 100 ML IV SCH ×4 (02:31→20:27)
[2020-04-01] MEDS: PIPERACILLIN/TAZO 2.25 GM 50 ML IV SCH ×4 (02:32→20:27)
[2020-04-01] MEDS: PANTOPRAZOLE 40 MG 10ML VIAL IV SCH (02:32)
[2020-04-01 05:39] LABS: BASOPHILS # (AUTO) 0.1 (0.0-0.1); BASOPHILS % 0.4 % (0.0-1.0); EOSINOPHILS # (AUTO) 0.2 (0.0-0.4); EOSINOPHILS % 1.6 % (0.0-6.0); HEMATOCRIT 30.9 % (34.2-44.1); HEMOGLOBIN 9.9 g/dL (12.0-16.0); LYMPHOCYTES # (AUTO) 1.6 (1.0-3.2); LYMPHOCYTES % 11.7 % (18.0-39.1); MEAN CORPUSCULAR HEMOGLOBIN 29.3 pg (28-32); MEAN CORPUSCULAR VOLUME 91.4 fL (81-99); MONOCYTES # (AUTO) 0.6 (0.2-0.8); MONOCYTES % 4.5 % (4.4-11.3); NEUTROPHILS # (AUTO) 10.7 (2.1-6.9); NEUTROPHILS % 77.9 % (38.7-80.0); PLATELET COUNT 255 x10e3/uL (140-360); RED BLOOD COUNT 3.38 x10e6/uL (3.6-5.1); RED CELL DISTRIBUTION WIDTH 14.5 % (11.7-14.4)
[2020-04-01 05:42] LABS: ANION GAP 15.8 mmol/L (8-16); CALCIUM 7.8 mg/dL (8.4-10.2); CREATININE, SERUM 0.97 mg/dL (0.57-1.11); POTASSIUM 3.8 mmol/L (3.5-5.1)
[2020-04-01] MEDS: INSULIN REGULAR, HUMAN 100 UNIT/1 ML 3ML VIAL SQ SCH ×4 (06:00→18:00)
--- NOTE | 2020-04-01 07:00 | NUR ---
{null, Received bedside shift report from off going nurse. Patient in stable condition, no s/s of distress noted. Transparent dressings at IV sites C/D/I. Telemetry applied and working. Bed in lowest position and locked. Call light within reach. }
[2020-04-01] MEDS: NICOTINE 14 MG/EA PATCH TOP SCH (08:16)
[2020-04-01] MEDS: IRON SUCROSE 100 MG in SODIUM CHLORIDE 0.9% 100 ML 100 ML IV SCH (10:00)
--- NOTE | 2020-04-01 10:33 | Progress Note ---
DATE: 04/01/2020 Nephrology Followup BODY AFTER ALLERGIES: SUBJECTIVE: The patient appears in no acute distress. Denies any shortness of breath or nausea. NG tube is removed. Awaiting p.o. intake. OBJECTIVE: VITALS SIGNS: Stable. Blood pressure 143/72, pulse ox 96% on room air. NECK: Supple without jugular venous distention. CHEST: Bilateral air entry without wheezing. No respiratory distress. CARDIOVASCULAR: Normal S1, S2. ABDOMEN: Soft, postop. EXTREMITIES: Without pitting edema or cyanosis. NEUROLOGIC: Alert and oriented x3. LABORATORY DATA: Creatinine 0.97, BUN 11, electrolytes normal, potassium 3.8. ASSESSMENT: 1. Acute kidney injury, postoperatively. Now, appears resolved. 2. Hypokalemia, replaced in IV fluid. 3. Metabolic acidosis, resolved. 4. Possible underlying chronic kidney disease, stage 3. PLAN: RECOMMENDATION: 1. Continue current IV fluid with D5 and a half-normal saline at 75 mL/minute. 2. Taper IV fluid as oral intake is established. 3. Continue to replace potassium and magnesium p.r.n. 4. Continue to monitor renal function and electrolytes daily for now. Tad Sharma MD [facility] /[id number]
--- NOTE | 2020-04-01 15:48 | NUR ---
{null, IM- progress noge o/n see below ROS: no f/c/s/STEWART/cp/skin rash/back pain/dizziness/focal limb weakness/confusion v/s; revd PE tired appearing anicteric ns1s2 mod bs soft nd; dressing in midline; ROSS drain in place; colostomy in place; ROSS drain in place; no leg edema a&ox3; [facility] labs/meds revd A/P: 65yoF Rupture of Sigmoid colon- s/p surgical resection and colostomy placement Septic shock- pressors; ivf; iv abx; Hyponatremia- rehydrate NISHI- rehydrate Metabolic acidosis - rehydrate Hyperglycemia- screen for DM Overweight- as above BMI 29.1 Prop: ppi; scd dispo: cct>35mins 5-11 COVID19 NEgative; cont LWC; cont IV abx in ICU; Replace K; renal fn about same; use nicotine patch; cct>35mins 5-12 Replace K; recheck BMP at 4pm; doing well; remains with NGT; pain controlled; 5-13 replace K; cont care; doing well; 5-14 Enterococcus infected wound- cont IV abx; f/u cx. Damaso Palma MD, PHD. }
[2020-04-01] MEDS: DEXTROSE 5%/0.45% SOD CHL 1,000 ML IV SCH (17:20)
--- NOTE | 2020-04-01 19:26 | NUR ---
{null, Completed bedside shift report and rounding with oncoming night nurse. Patient in stable condition, no s/s of distress noted. No pain voiced. IV fluids running, IV site asymptomatic and patient. Transparent dressing C/D/I. Bed in lowest position and locked. Call light within reach. }
[2020-04-02] VITALS (9 sets, daily range): BP systolic 130–144; BP diastolic 65–69
[2020-04-02] MEDS: IPRATROPIUM BROMIDE 0.02% 2.5 ML NEB NEB SCH ×4 (01:00→19:55)
[2020-04-02] MEDS: PIPERACILLIN/TAZO 2.25 GM 50 ML IV SCH ×4 (01:55→21:18)
[2020-04-02] MEDS: METRONIDAZOLE 500MG/NS 100ML 100 ML IV SCH ×4 (01:55→20:22)
--- NOTE | 2020-04-02 02:00 | NUR ---
{null, 0100 PATIENT ATTEMPTED TO GET UP FROM BED WITHOUT ASSISTANCE AND ACCIDENTALLY PULLED HEMOVAC FROM SURGICAL SITE TO LOWER BACK, TIP OF TUBING INTACT, INCISION ASSESSED WITH NO DRAINAGE NOTED, HV SUTURE REMOVED AND DRESSING REAPPLIED TO SITE, PATIENT IN MORE PAIN AT THIS TIME DUE TO DRAIN REMOVAL, PATIENT STATES PERCOCET DOES NOT WORK WELL FOR HER PAIN BUT NORCO WORKS BETTER, DR GILES NOTIFIED OF ABOVE, PAIN MEDICATION CHANGED TO NORCO PER MD ORDER. }
[2020-04-02] MEDS: HYDROMORPHONE 1MG/1ML INJ IV PRN ×7 (02:11→21:03)
[2020-04-02] MEDS: DEXTROSE 5%/0.45% SOD CHL 1,000 ML IV SCH ×2 (02:11→17:03)
[2020-04-02] MEDS: PANTOPRAZOLE 40 MG 10ML VIAL IV SCH (02:38)
[2020-04-02] MEDS: INSULIN REGULAR, HUMAN 100 UNIT/1 ML 3ML VIAL SQ SCH ×5 (05:26→23:48)
[2020-04-02 05:35] LABS: BASOPHILS # (AUTO) 0.1 (0.0-0.1); BASOPHILS % 0.5 % (0.0-1.0); HEMOGLOBIN 9.1 g/dL (12.0-16.0); LYMPHOCYTES # (AUTO) 1.3 (1.0-3.2); LYMPHOCYTES % 11.3 % (18.0-39.1); MEAN CORPUSCULAR HEMOGLOBIN 30.2 pg (28-32); MEAN CORPUSCULAR HGB CONC 32.5 g/dL (31-35); MONOCYTES # (AUTO) 0.9 (0.2-0.8); MONOCYTES % 7.2 % (4.4-11.3); NEUTROPHILS % 75.5 % (38.7-80.0); PLATELET COUNT 278 x10e3/uL (140-360); RED BLOOD COUNT 3.01 x10e6/uL (3.6-5.1); RED CELL DISTRIBUTION WIDTH 14.4 % (11.7-14.4)
[2020-04-02 05:47] LABS: ANION GAP 13.8 mmol/L (8-16); CALCIUM 7.7 mg/dL (8.4-10.2); CREATININE, SERUM 0.93 mg/dL (0.57-1.11); POTASSIUM 3.8 mmol/L (3.5-5.1)
--- NOTE | 2020-04-02 06:31 | NUR ---
{null, IM- progress noge o/n see below ROS: no f/c/s/STEWART/cp/skin rash/back pain/dizziness/focal limb weakness/confusion v/s; revd PE tired appearing anicteric ns1s2 mod bs soft nd; dressing in midline; ROSS drain in place; colostomy in place; ROSS drain in place; no leg edema a&ox3; [facility] labs/meds revd A/P: 65yoF Rupture of Sigmoid colon- s/p surgical resection and colostomy placement Septic shock- pressors; ivf; iv abx; Hyponatremia- rehydrate NISHI- rehydrate Metabolic acidosis - rehydrate Hyperglycemia- screen for DM Overweight- as above BMI 29.1 Prop: ppi; scd dispo: cct>35mins 5-11 COVID19 NEgative; cont LWC; cont IV abx in ICU; Replace K; renal fn about same; use nicotine patch; cct>35mins 5-12 Replace K; recheck BMP at 4pm; doing well; remains with NGT; pain controlled; 5-13 replace K; cont care; doing well; 5-14 Enterococcus infected wound- cont IV abx; f/u cx. 5-15 cont care; Damaso Palma MD, PHD. }
[2020-04-02] MEDS: NICOTINE 14 MG/EA PATCH TOP SCH (09:17)
[2020-04-02] MEDS ORDERED: MAGNESIUM HYDROXIDE 30 ML UDC PO ONE (11:35)
--- NOTE | 2020-04-02 12:28 | Progress Note ---
DATE: 04/02/2020 Nephrology Followup Note SUBJECTIVE: The patient continues to make recovery post colectomy. Now taking clear liquids. Denies shortness of breath. OBJECTIVE: VITAL SIGNS: Blood pressure 130/67, pulse 86 per minute. NECK: Supple without jugular venous distention. CHEST: Bilateral air entry symmetrically. CARDIOVASCULAR: S1, S2. ABDOMEN: Postop. EXTREMITIES: Without pitting edema. NEUROLOGICAL: Alert and oriented x3. LABORATORY DATA: Sodium 134, rest of the electrolytes, BUN and creatinine are normal. ASSESSMENT: 1. Acute kidney injury, postoperatively. , resolved. 2. Hypokalemia, replaced. 3. Metabolic acidosis, resolved. 4. Hopefully, as diet advances, her electrolytes will become more stable. Continue to check renal function periodically. Tad Sharma MD [facility] /[id number]
[2020-04-02] MEDS: ONDANSETRON HCL INJ 2MG/ML 2ML 2 MG/ML VIAL IV PRN ×2 (13:12→17:53)
[2020-04-02] MEDS: ALBUTEROL SULF 0.083% NEB SOLN 3 ML NEB NEB PRN (19:55)
--- NOTE | 2020-04-02 20:20 | NUR ---
{null, PATIENT IS RESTING IN STABLE CONDITION AOX3, NO SIGNS OF DISTRESS NOTED. IV FLUIDS ARE RUNNING AT ORDERED RATE AND PATIENT VOICES PAIN AT A LEVEL OF 7 AND WILL BE MEDICATED ORDERED. LEFT COLOSTOMY NOTED AND PUREWICK IS PLACED AND INTACT, DARK VINAY URINE NOTED. BED IS IN LOW POSITION, SIDE RAILS ARE UP, CALL LIGHT WITHIN REACH, WILL CONTINUE TO MONITOR. }
[2020-04-03] VITALS (9 sets, daily range): BP systolic 107–133; BP diastolic 59–73
[2020-04-03] MEDS: HYDROMORPHONE 1MG/1ML INJ IV PRN ×8 (00:45→23:57)
[2020-04-03] MEDS: ONDANSETRON HCL INJ 2MG/ML 2ML 2 MG/ML VIAL IV PRN ×2 (00:45→20:15)
[2020-04-03] MEDS: METRONIDAZOLE 500MG/NS 100ML 100 ML IV SCH ×4 (01:53→20:15)
[2020-04-03] MEDS: IPRATROPIUM BROMIDE 0.02% 2.5 ML NEB NEB SCH ×4 (02:40→19:55)
[2020-04-03] MEDS: PIPERACILLIN/TAZO 2.25 GM 50 ML IV SCH ×4 (03:05→21:17)
[2020-04-03] MEDS: PANTOPRAZOLE 40 MG 10ML VIAL IV SCH (03:05)
--- NOTE | 2020-04-03 04:55 | NUR ---
{null, IM- progress note o/n see below ROS: no f/c/s/STEWART/cp/skin rash/back pain/dizziness/focal limb weakness/confusion v/s; revd PE tired appearing anicteric ns1s2 mod bs soft nd; dressing in midline; ROSS drain in place; colostomy in place; ROSS drain in place; no leg edema a&ox3; [facility] labs/meds revd A/P: 65yoF Rupture of Sigmoid colon- s/p surgical resection and colostomy placement Septic shock- pressors; ivf; iv abx; Hyponatremia- rehydrate NISHI- rehydrate Metabolic acidosis - rehydrate Hyperglycemia- screen for DM Overweight- as above BMI 29.1 Prop: ppi; scd dispo: cct>35mins 5-11 COVID19 NEgative; cont LWC; cont IV abx in ICU; Replace K; renal fn about same; use nicotine patch; cct>35mins 5-12 Replace K; recheck BMP at 4pm; doing well; remains with NGT; pain controlled; 5-13 replace K; cont care; doing well; 5-14 Enterococcus infected wound- cont IV abx; f/u cx. 5-15 cont care; 5-16 E.coli and Enterococcus infected wound- both sensitive to ceftriaxone; cont care; made NPO again; f/u imaging; Damaso Palma MD, PHD. }
[2020-04-03] MEDS: DEXTROSE 5%/0.45% SOD CHL 1,000 ML IV SCH ×2 (05:00→16:33)
[2020-04-03 05:44] LABS: BASOPHILS # (AUTO) 0.1 (0.0-0.1); BASOPHILS % 0.4 % (0.0-1.0); HEMATOCRIT 26.1 % (34.2-44.1); HEMOGLOBIN 8.3 g/dL (12.0-16.0); LYMPHOCYTES # (AUTO) 1.1 (1.0-3.2); LYMPHOCYTES % 8.4 % (18.0-39.1); MEAN CORPUSCULAR HEMOGLOBIN 29.4 pg (28-32); MEAN CORPUSCULAR HGB CONC 31.8 g/dL (31-35); MEAN CORPUSCULAR VOLUME 92.6 fL (81-99); MONOCYTES # (AUTO) 0.8 (0.2-0.8); MONOCYTES % 5.7 % (4.4-11.3); NEUTROPHILS # (AUTO) 10.8 (2.1-6.9); NEUTROPHILS % 80.9 % (38.7-80.0); PLATELET COUNT 300 x10e3/uL (140-360); RED BLOOD COUNT 2.82 x10e6/uL (3.6-5.1); RED CELL DISTRIBUTION WIDTH 14.2 % (11.7-14.4)
[2020-04-03] MEDS: INSULIN REGULAR, HUMAN 100 UNIT/1 ML 3ML VIAL SQ SCH ×3 (06:00→16:33)
[2020-04-03 06:04] LABS: ALANINE AMINOTRANSFERASE 8 IU/L (0-55); ALBUMIN 1.6 g/dL (3.5-5.0); ALBUMIN/GLOBULIN RATIO 0.4 (0.8-2.0); ALKALINE PHOSPHATASE 144 IU/L (40-150); ANION GAP 10.7 mmol/L (8-16); BLOOD UREA NITROGEN 10 mg/dL (7-26); BUN/CREATININE RATIO 12 (6-25); CALCIUM 7.8 mg/dL (8.4-10.2); CARBON DIOXIDE 23 mmol/L (22-29); CHLORIDE 102 mmol/L (98-107); CREATININE, SERUM 0.85 mg/dL (0.57-1.11); EST GLOMERULAR FILTRATION RATE > 60 ML/MIN (60-); GLUCOSE 114 mg/dL (74-118); POTASSIUM 3.7 mmol/L (3.5-5.1); SODIUM 132 mmol/L (136-145)
[2020-04-03] MEDS: NICOTINE 14 MG/EA PATCH TOP SCH (08:38)
--- NOTE | 2020-04-03 15:03 | NUR ---
{null, Nutrition Intervention Note RD Recommendation(s) for Physician: -Recommend advancing to GI soft diet when medically appropriate -Recommend Ensure Compact BID for added nutrition when diet is advanced Plan of Care: RD following, monitoring for tolerance and adequacy Nutrition reason for involvement: NPO/Clear Liquid diet > 4 days and Length of stay RD Assessment (04/03/19) Pt is a 65 year old female admitted with abdominal pain, perforated abdominal viscus, sepsis, and vomiting. Pt had an exploratory laparotomy with a colon resection and colostomy on 04/02. Pt has been on NPO/clear liquid diet for > 4 days. Pt reports she was eating <50% of meals for > 1 month prior to admission. No weight loss reported and pt mentioned she usually weighs 180 lbs. Pt currently has a weight of 190 lbs in chart. Pt reports some nausea. Recommend Ensure Compact BID when diet is advanced. Will continue to monitor. Principal Problems/Diagnoses: abdominal pain, perforated abdominal viscus, sepsis, and vomiting PMH: left side nephrectomy I/O: 1740/1702 IVF: KCl @ 50 mL/hr, Dextrose/NaCl @ 75 mL/hr GI: colostomy, abdomen is soft, round, and firm Skin: no pressure ulcers Labs: (04/03/20) Na 132, Ca 7.8 Meds: dilaudid, antibiotics, protonix, zofran, insulin Ht: 66 inches Wt: 190 lbs BMI: 30.7 kg/m2 IBW: 130 lbs Malnutrition Evaluation (04/03/20) The patient does not meet criteria for a specified degree of malnutrition at this time. Will re-evaluate at follow-up as appropriate. Energy intake: <75% of estimated energy requirements for 1 month Weight loss: No weight loss reported Fat loss: no loss identified Muscle loss: no loss identified Supporting Evidence: Fluid accumulation: no edema per MD note Functional Status: unable to evaluate Nutrition Prescription (Diet Order): clear liquids Estimated Nutritional Needs: 3547-9980 calories/day (22-25 kcal/kg IBW) 89-118 g protein/day (1.5-2 g pro/kg IBW) Diet Adequacy: Not meeting calorie needs, Not meeting protein needs Tolerance: Tolerance pending Diet Education Needs Assessment: RD provided pt with colostomy nutrition therapy education materials. Pt was not interested in verbal education at time of visit and stated she will read provided materials at a later time. Encouraged pt to contact RD if she has questions Nutrition Care Level: moderate Nutrition Diagnosis: Inadequate energy intake related to decreased ability to consume sufficient energy as evidenced by insufficient energy intake from diet compared to needs. Goal: Patient will meet 75-100% of estimated needs by follow up Progress: N/A Interventions: -fiber- modified diet, Commercial beverage Monitoring/Evaluation: -Total energy intake, Total protein intake, Modified diet, Liquid supplement, Weight change, Level of knowledge Signed: Monik Bonner RD, LD }
--- NOTE | 2020-04-03 20:15 | NUR ---
{null, PATIENT IS RESTING IN STABLE CONDITION AOX3, NO SIGNS OF DISTRESS NOTED. IV FLUIDS ARE RUNNING AT ORDERED RATE AND PATIENT VOICES PAIN AT A LEVEL OF 7 AND WAS BE MEDICATED ORDERED. LEFT COLOSTOMY NOTED AND PUREWICK IS PLACED AND INTACT, DARK VINAY URINE NOTED. PATIENT AWARE OF CLEAR LIQUID DIET AND TOLERATION WILL BE MONITORED. BED IS IN LOW POSITION, SIDE RAILS ARE UP, CALL LIGHT WITHIN REACH, WILL CONTINUE TO MONITOR. }
[2020-04-04] VITALS (9 sets, daily range): BP systolic 104–145; BP diastolic 57–79
[2020-04-04] MEDS: METRONIDAZOLE 500MG/NS 100ML 100 ML IV SCH ×4 (02:12→19:55)
[2020-04-04] MEDS: IPRATROPIUM BROMIDE 0.02% 2.5 ML NEB NEB SCH ×4 (02:25→20:10)
[2020-04-04] MEDS ORDERED: HYDROMORPHONE 1MG/1ML INJ IV PRN (03:00)
[2020-04-04] MEDS: PANTOPRAZOLE 40 MG 10ML VIAL IV SCH (03:20)
[2020-04-04] MEDS: PIPERACILLIN/TAZO 2.25 GM 50 ML IV SCH ×4 (03:20→20:59)
[2020-04-04] MEDS: HYDROMORPHONE 1MG/1ML INJ IV PRN ×7 (04:02→23:49)
[2020-04-04] MEDS: ONDANSETRON HCL INJ 2MG/ML 2ML 2 MG/ML VIAL IV PRN ×2 (04:02→20:40)
[2020-04-04] MEDS: INSULIN REGULAR, HUMAN 100 UNIT/1 ML 3ML VIAL SQ SCH ×4 (06:00→17:44)
[2020-04-04] MEDS: DEXTROSE 5%/0.45% SOD CHL 1,000 ML IV SCH (08:10)
[2020-04-04] MEDS: NICOTINE 14 MG/EA PATCH TOP SCH (08:10)
--- NOTE | 2020-04-04 11:56 | NUR ---
{null, IM- progress note o/n see below ROS: no f/c/s/STEWART/cp/skin rash/back pain/dizziness/focal limb weakness/confusion v/s; revd PE tired appearing anicteric ns1s2 mod bs soft nd; dressing in midline; ROSS drain in place; colostomy in place; ROSS drain in place; no leg edema a&ox3; [facility] labs/meds revd A/P: 65yoF Rupture of Sigmoid colon- s/p surgical resection and colostomy placement Septic shock- pressors; ivf; iv abx; Hyponatremia- rehydrate NISHI- rehydrate Metabolic acidosis - rehydrate Hyperglycemia- screen for DM Overweight- as above BMI 29.1 Prop: ppi; scd dispo: cct>35mins E.coli, Enterococcus, Proteus infected wound- both sensitive to ceftriaxone; cont care; made NPO again; f/u imaging; 5-17 back on liquid diet; monitor for nausea; cont care; Damaso Palma MD, PHD. }
[2020-04-04 13:32] LABS: ALANINE AMINOTRANSFERASE 6 IU/L (0-55); ALBUMIN 1.7 g/dL (3.5-5.0); ALBUMIN/GLOBULIN RATIO 0.4 (0.8-2.0); ALKALINE PHOSPHATASE 129 IU/L (40-150); ANION GAP 11.7 mmol/L (8-16); BLOOD UREA NITROGEN 6 mg/dL (7-26); BUN/CREATININE RATIO 7 (6-25); CALCIUM 7.9 mg/dL (8.4-10.2); CARBON DIOXIDE 20 mmol/L (22-29); CHLORIDE 104 mmol/L (98-107); CREATININE, SERUM 0.83 mg/dL (0.57-1.11); EST GLOMERULAR FILTRATION RATE > 60 ML/MIN (60-); GLUCOSE 132 mg/dL (74-118); POTASSIUM 3.7 mmol/L (3.5-5.1); SODIUM 132 mmol/L (136-145)
--- NOTE | 2020-04-04 15:37 | Progress Note ---
DATE: 04/04/2020 Nephrology Progress Note SUBJECTIVE: The patient is sitting up in bed, comfortable, taking in a full liquid diet. No shortness of breath. OBJECTIVE: VITAL SIGNS: Stable. Blood pressure 129/76 and pulse 89 per minute. She is afebrile. Oxygen saturation on room air 97%. NECK: Supple without jugular venous distention. CHEST: Bilateral symmetrical air entry, no respiratory distress. CARDIOVASCULAR: Regular S1 and S2. ABDOMEN: Postop. EXTREMITIES: Without pitting edema or cyanosis. NEUROLOGICAL: Alert and oriented x3. LABORATORY DATA: Hemoglobin is 8.3 yesterday, white count 13.29, and normal platelet count. Serum chemistries from yesterday show sodium of 132, bicarb 23, potassium 3.7, creatinine 0.85, BUN 10, and calcium 7.8. IMPRESSION: 1. Acute kidney injury perioperatively, staying resolved. 2. Hypokalemia, corrected. 3. Metabolic acidosis, staying resolved. RECOMMENDATIONS: Continue to advance diet as tolerated. Mild hyponatremia should resolve with regular salt intake. Check BMP periodically while in hospital. Tad Sharma MD [facility] /[id number]
[2020-04-04] MEDS: ALBUTEROL SULF 0.083% NEB SOLN 3 ML NEB NEB PRN (20:10)
--- NOTE | 2020-04-04 20:40 | NUR ---
{null, PATIENT IS RESTING IN STABLE CONDITION AOX3, NO SIGNS OF DISTRESS NOTED. PATIENT HAD WALKED SUCCESSFULLY UP AND DOWN THE HALLS EARLIER IN THE SHIFT. IV FLUIDS ARE RUNNING AT ORDERED RATE AND PATIENT VOICES PAIN AT A LEVEL OF 8 AND WAS BE MEDICATED ORDERED. LEFT COLOSTOMY NOTED AND PUREWICK IS PLACED AND INTACT, DARK VINAY URINE NOTED. PATIENT AWARE OF FULL LIQUID DIET AND TOLERATION WILL BE MONITORED. BED IS IN LOW POSITION, SIDE RAILS ARE UP, CALL LIGHT WITHIN REACH, WILL CONTINUE TO MONITOR. }
[2020-04-05] VITALS (8 sets, daily range): BP systolic 114–141; BP diastolic 64–72
[2020-04-05] MEDS: ALBUTEROL SULF 0.083% NEB SOLN 3 ML NEB NEB PRN ×2 (00:30→07:05)
[2020-04-05] MEDS: IPRATROPIUM BROMIDE 0.02% 2.5 ML NEB NEB SCH ×4 (00:30→19:55)
[2020-04-05] MEDS: DEXTROSE 5%/0.45% SOD CHL 1,000 ML IV SCH ×2 (02:31→10:20)
[2020-04-05] MEDS: METRONIDAZOLE 500MG/NS 100ML 100 ML IV SCH ×4 (02:31→21:38)
[2020-04-05] MEDS: PIPERACILLIN/TAZO 2.25 GM 50 ML IV SCH ×4 (03:55→20:58)
[2020-04-05] MEDS: PANTOPRAZOLE 40 MG 10ML VIAL IV SCH (04:10)
[2020-04-05] MEDS: HYDROMORPHONE 1MG/1ML INJ IV PRN ×6 (04:51→23:22)
[2020-04-05] MEDS: INSULIN REGULAR, HUMAN 100 UNIT/1 ML 3ML VIAL SQ SCH ×5 (05:58→23:59)
[2020-04-05 06:20] LABS: ANION GAP 11.8 mmol/L (8-16); BLOOD UREA NITROGEN 7 mg/dL (7-26); BUN/CREATININE RATIO 9 (6-25); CALCIUM 7.8 mg/dL (8.4-10.2); CARBON DIOXIDE 18 mmol/L (22-29); CHLORIDE 107 mmol/L (98-107); CREATININE, SERUM 0.79 mg/dL (0.57-1.11); EST GLOMERULAR FILTRATION RATE > 60 ML/MIN (60-); GLUCOSE 106 mg/dL (74-118); POTASSIUM 3.8 mmol/L (3.5-5.1); SODIUM 133 mmol/L (136-145)
--- NOTE | 2020-04-05 07:02 | NUR ---
{null, BEDSIDE SHIFT REPORT RECEIVED FROM PM NURSE. PT AWAKE, ALERT, ORIENTED, NO SIGNS OF DISTRESS. ROSS DRAIN AND COLOSTOMY BAG IN PLACE. WILL CONTINUE TO MONITOR. }
[2020-04-05] MEDS: NICOTINE 14 MG/EA PATCH TOP SCH (08:54)
--- NOTE | 2020-04-05 14:26 | NUR ---
{null, IM- progress note o/n see below ROS: no f/c/s/STEWART/cp/skin rash/back pain/dizziness/focal limb weakness/confusion v/s; revd PE tired appearing anicteric ns1s2 mod bs soft nd; dressing in midline; ROSS drain in place; colostomy in place; ROSS drain in place; no leg edema a&ox3; [facility] labs/meds revd A/P: 65yoF Rupture of Sigmoid colon- s/p surgical resection and colostomy placement Septic shock- pressors; ivf; iv abx; Hyponatremia- rehydrate NISHI- rehydrate Metabolic acidosis - rehydrate Hyperglycemia- screen for DM Overweight- as above BMI 29.1 Prop: ppi; scd dispo: cct>35mins E.coli, Enterococcus, Proteus infected wound- both sensitive to ceftriaxone; cont care; made NPO again; f/u imaging; 5-17 back on liquid diet; monitor for nausea; cont care; 5-18 tolerating diet; d/c planning; Damaso Palma MD, PHD. }
[2020-04-05] MEDS ORDERED: HYDROCODONE/APAP 7.5MG-325MG 1 EA TAB PO PRN (17:45)
--- NOTE | 2020-04-05 19:00 | NUR ---
{null, RECEIVED PATIENT IN BEDSIDE SHIFT REPORT. PATIENT RESTING IN BED. PAIN 8/, DAY NURSE TO MEDICATE FOR PAIN. R IJ DOUBLE LUMEN ASYMPTOMATIC, INTACT, AND PATENT. NO S&S OF DISTRESS NOTED. SCDS ON AND ACTIVE. BED ALARM ON. BED LOCKED IN LOWEST POSITION, SIDE RAILS UPX2, CALL LIGHT IN REACH. }
--- NOTE | 2020-04-05 21:00 | NUR ---
{null, PATIENT REFUSING Q2 TURNS AT THIS TIME. BED PUMP ACTIVE. WILL CONTINUE TO ATTEMPT. }
[2020-04-06] VITALS (8 sets, daily range): BP systolic 126–152; BP diastolic 60–81
[2020-04-06] MEDS: IPRATROPIUM BROMIDE 0.02% 2.5 ML NEB NEB SCH ×4 (00:32→20:20)
[2020-04-06] MEDS: PIPERACILLIN/TAZO 2.25 GM 50 ML IV SCH ×3 (02:50→17:30)
[2020-04-06] MEDS: HYDROMORPHONE 1MG/1ML INJ IV PRN ×7 (02:50→22:50)
[2020-04-06] MEDS: PANTOPRAZOLE 40 MG 10ML VIAL IV SCH (02:50)
[2020-04-06] MEDS: METRONIDAZOLE 500MG/NS 100ML 100 ML IV SCH ×3 (03:28→18:18)
--- NOTE | 2020-04-06 07:08 | NUR ---
{null, BEDSIDE SHIFT REPORT RECEIVED FROM PM NURSE. PT AWAKE, ALERT, STATES PAIN IS IMPROVED. ALL SAFETY MEASURES IN PLACE. NO SIGNS OF DISTRESS. WILL CONTINUE TO MONITOR. }
[2020-04-06] MEDS: INSULIN REGULAR, HUMAN 100 UNIT/1 ML 3ML VIAL SQ SCH ×4 (07:30→21:00)
--- NOTE | 2020-04-06 08:19 | NUR ---
{null, IM- progress note o/n see below ROS: no f/c/s/STEWART/cp/skin rash/back pain/dizziness/focal limb weakness/confusion v/s; revd PE tired appearing anicteric ns1s2 mod bs soft nd; dressing in midline; ROSS drain in place; colostomy in place; ROSS drain in place; no leg edema a&ox3; [facility] labs/meds revd A/P: 65yoF Rupture of Sigmoid colon- s/p surgical resection and colostomy placement Septic shock- pressors; ivf; iv abx; Hyponatremia- rehydrate NISHI- rehydrate Metabolic acidosis - rehydrate Hyperglycemia- screen for DM Overweight- as above BMI 29.1 Prop: ppi; scd dispo: cct>35mins E.coli, Enterococcus, Proteus infected wound- both sensitive to ceftriaxone; cont care; made NPO again; f/u imaging; 5-17 back on liquid diet; monitor for nausea; cont care; 5-18 tolerating diet; d/c planning; 5-19 check labs Damaso Palma MD, PHD. }
[2020-04-06 08:46] LABS: BASOPHILS # (AUTO) 0.1 (0.0-0.1); BASOPHILS % 0.6 % (0.0-1.0); HEMATOCRIT 25.9 % (34.2-44.1); HEMOGLOBIN 8.2 g/dL (12.0-16.0); LYMPHOCYTES # (AUTO) 1.2 (1.0-3.2); LYMPHOCYTES % 9.1 % (18.0-39.1); MEAN CORPUSCULAR HEMOGLOBIN 28.8 pg (28-32); MEAN CORPUSCULAR HGB CONC 31.7 g/dL (31-35); MEAN CORPUSCULAR VOLUME 90.9 fL (81-99); MONOCYTES # (AUTO) 0.6 (0.2-0.8); MONOCYTES % 4.8 % (4.4-11.3); NEUTROPHILS # (AUTO) 11.3 (2.1-6.9); NEUTROPHILS % 84.2 % (38.7-80.0); PLATELET COUNT 401 x10e3/uL (140-360); RED BLOOD COUNT 2.85 x10e6/uL (3.6-5.1); RED CELL DISTRIBUTION WIDTH 14.6 % (11.7-14.4)
[2020-04-06 09:12] LABS: ANION GAP 12.9 mmol/L (8-16); BLOOD UREA NITROGEN 6 mg/dL (7-26); BUN/CREATININE RATIO 8 (6-25); CALCIUM 8.4 mg/dL (8.4-10.2); CARBON DIOXIDE 18 mmol/L (22-29); CHLORIDE 106 mmol/L (98-107); CREATININE, SERUM 0.78 mg/dL (0.57-1.11); EST GLOMERULAR FILTRATION RATE > 60 ML/MIN (60-); GLUCOSE 105 mg/dL (74-118); POTASSIUM 3.9 mmol/L (3.5-5.1); SODIUM 133 mmol/L (136-145)
[2020-04-06] MEDS: ONDANSETRON HCL INJ 2MG/ML 2ML 2 MG/ML VIAL IV PRN ×3 (09:14→22:58)
[2020-04-06] MEDS: NICOTINE 14 MG/EA PATCH TOP SCH (09:20)
[2020-04-06 09:27] LABS: MAGNESIUM 1.6 MG/DL (1.3-2.1); PHOSPHORUS 2.7 MG/DL (2.3-4.7)
--- NOTE | 2020-04-06 10:19 | Diagnostic Imaging Report ---
TECHNIQUE: Frontal view of the chest. INDICATION: ^F/U ^[id number] ^0920 COMPARISON: 03/31/2020 IMPRESSION: Lines and hardware: Interval removal of the enteric catheter. Otherwise, stable. Heart and mediastinum: Stable. Lungs and pleura: Improved right infrahilar airspace opacity with small pleural effusion. Left basilar atelectasis and small pleural effusion. No pneumothorax. Soft tissues and bones: No acute abnormality. Signed by: Anil Schwab MD on 04/06/2020 10:16 AM
[2020-04-06] MEDS ORDERED: MAGNESIUM SULFATE 2GM/50ML 50 ML IV ONE (14:00)
--- NOTE | 2020-04-06 14:50 | Progress Note ---
DATE: 04/06/2020 Nephrology Progress Note SUBJECTIVE: The patient has no new complaints. Taking p.o. well. OBJECTIVE: VITAL SIGNS: Stable. Blood pressure 138/74, pulse 72 per minute, oxygen saturation 96% on room air. NECK: Supple without jugular venous distention. RESPIRATORY: Symmetrical breathing without undue effort. CARDIOVASCULAR: Normal S1, S2. ABDOMEN: Postop. EXTREMITIES: Without pitting edema or cyanosis. NEUROLOGICAL: Alert and oriented x3. LABORATORY DATA: BUN and creatinine remain normal. Sodium mildly low at 133, potassium 3.9. Serum bicarb low at 18. IMPRESSION AND PLAN: 1. Acute kidney injury, staying resolved. 2. Mild hyponatremia, likely dilutional. Asymptomatic. Observe. 3. Mild non-anion gap metabolic acidosis, likely from chloride containing IV fluid. Would discontinue all IV fluid since patient is taking p.o. well. Tad Sharma MD [facility] /[id number]
--- NOTE | 2020-04-06 15:05 | NUR ---
{null, Received order for home health. Per Dr. Melendez, anticipate dc in 1-2 days. Spoke to pt at bedside. Pt states she has never used home health previously and is agreeable to any company that takes her insurance. Choice letter signed for [employer], [facility], and [facility]. Copy of letter with each company's contact information given to pt. Signed letter placed in chart. IMM letter delivered and explained to pt. She verbalized understanding and states that she is ready to go home once MDs clear her. Signed copy placed in chart. Copy to pt. Referral for home health faxed to [facility] at [phone] / . Called and spoke with Ana in office and informed of referral. }
--- NOTE | 2020-04-06 19:00 | NUR ---
{null, RECEIVED PATIENT IN BEDSIDE SHIFT REPORT. PATIENT RESTING IN BED, PAIN 7/10, WILL BE MEDICATED BY DAY SHIFT NURSE. NO S&S OF DISTRESS NOTED. BED LOCKED IN LOWEST POSITION, SIDE RAILS UPX2, CALL LIGHT IN REACH. }
--- NOTE | 2020-04-06 19:30 | NUR ---
{null, ATTEMPTED TO REMOVE L EJ 20G IV IT IS NOT BEING USED. PATIENT REFUSED STATING "I DO NOT WANT IT OUT BECAUSE I DONT WANT THEM TO HAVE TO PUT IT BACK IN. IT CAN COME OUT WHEN I LEAVE THE HOSPITAL." IV IS ASYMPTOMATIC, INTACT, AND PATENT. RESECURED WITH TAPE. WILL CONTINUE TO MONITOR. }
--- NOTE | 2020-04-06 19:47 | NUR ---
{null, PAGED MD STANLEY CONCERNING PATIENT'S ANTIBIOTICS, AWAITING CALL BACK. }
[2020-04-07] VITALS (7 sets, daily range): BP systolic 117–147; BP diastolic 72–85
[2020-04-07] MEDS: IPRATROPIUM BROMIDE 0.02% 2.5 ML NEB NEB SCH ×3 (01:20→13:00)
[2020-04-07] MEDS: HYDROMORPHONE 1MG/1ML INJ IV PRN ×2 (01:52→05:15)
[2020-04-07] MEDS: ONDANSETRON HCL INJ 2MG/ML 2ML 2 MG/ML VIAL IV PRN ×2 (01:58→08:30)
[2020-04-07] MEDS: METRONIDAZOLE 500MG/NS 100ML 100 ML IV SCH ×3 (01:58→13:33)
[2020-04-07] MEDS: PANTOPRAZOLE 40 MG 10ML VIAL IV SCH (03:29)
[2020-04-07] MEDS: PIPERACILLIN/TAZO 2.25 GM 50 ML IV SCH ×3 (03:29→14:57)
[2020-04-07] MEDS ORDERED: FLAGYL500 MG PO (07:12)
[2020-04-07] MEDS ORDERED: KEFLEX500 MG PO ×2 (07:12→18:44)
[2020-04-07] MEDS ORDERED: ULTRAM50 MG PO (07:12)
[2020-04-07] MEDS ORDERED: SENNA LAXATIVE8.6 MG PO ×2 (07:12→18:47)
--- NOTE | 2020-04-07 07:14 | NUR ---
{null, D/C summary Principal Dx: Rupture of Sigmoid colon- s/p surgical resection and colostomy placement Septic shock- pressors; ivf; iv abx; ENerococcus and E.coli and Proteus infected wound Hyponatremia- rehydrate NISHI- rehydrate Metabolic acidosis - rehydrate Hyperglycemia- screen for DM Overweight- as above BMI 29.1 Prop: ppi; scd dispo: cct>35mins E.coli, Enterococcus, Proteus infected wound- both sensitive to ceftriaxone; cont care; made NPO again; f/u imaging; 5-17 back on liquid diet; monitor for nausea; cont care; 5-18 tolerating diet; d/c planning; 5-19 check labs d/c home stable f/u pcp 1 week and surgery 1 week d/c>35mins Damaso Palma MD, PHD. }
--- NOTE | 2020-04-07 07:27 | NUR ---
{null, ASSUMED CARE. AAOX3. ACYANOTIC. RESTING IN BED. NO DISTRESS NOTED. DENIES PAIN. CALL LIGHT IN REACH. SIDE RAILS UP X2. BED LOW. }
[2020-04-07] MEDS: INSULIN REGULAR, HUMAN 100 UNIT/1 ML 3ML VIAL SQ SCH ×3 (07:30→16:30)
[2020-04-07] MEDS: NICOTINE 14 MG/EA PATCH TOP SCH (08:30)
[2020-04-07] MEDS: TRAMADOL HCL 50 MG TAB PO PRN ×2 (08:36→17:34)
[2020-04-07] MEDS ORDERED: ONDANSETRON HCL 4 MG ORAL DISINTEGRATING TAB SL PRN (09:30)
--- NOTE | 2020-04-07 09:44 | NUR ---
{nelia, Spoke with Hiral at [facility]. Informed her of discharge for today. They will put pt on schedule to be seen tomorrow. Home health information given to pt. }
--- NOTE | 2020-04-07 15:48 | NUR ---
{null, CURRENTLY WAITING ON DR. Javier NUÑEZ TO RETURN TO PATIENT'S BEDSIDE. SUPPLIES THAT PHYSICIAN REQUESTED WERE PLACED AT PATIENT'S BEDSIDE FOR PENDING COLOSTOMY EDUCATION. PHYSICIAN STATED, "I WILL COME BY LATER TODAY AND GO OVER SOME COLOSTOMY TEACHING BEFORE SHE GOES HOME." PATIENT AAOX3. ACYANOTIC. RESTING IN BED. NO DISTRESS NOTED. }
--- NOTE | 2020-04-07 16:44 | NUR ---
{null, AAOX3. ACYANOTIC. RESTING IN BED. DR. Javier NUÑEZ PRESENT AT BEDSIDE CHANGING COLOSTOMY BAG AND PROVIDING COLOSTOMY EDUCATION. PHYSICIAN REMOVED ROSS DRAIN. DRESSING TO ABDOMEN REMOVED. DOMITILA NOTED TO MIDABDOMINAL INCISION (NOW OPEN TO AIR). NO SIGNS OF INFECTION NOTED. }
--- NOTE | 2020-04-07 18:35 | NUR ---
{null, AT APPROXIMATELY 1700 ON , DR. Fabian NUÑEZ PROVIDED VERBAL ORDER TO DISCHARGE PATIENT. }
[2020-04-07] MEDS ORDERED: ULTRAM 50MG50 MG PO (18:43)
[2020-04-07] MEDS ORDERED: METRONIDAZOLE500 MG PO (18:46)
[2020-04-07] MEDS ORDERED: FLAGYL250 MG (18:46)
--- NOTE | 2020-04-07 19:51 | NUR ---
{null, PATIENT DISCHARGED AT THIS TIME. R IJ DOUBLE-LUMEN AND L EG 20G REMOVED AT 1920, PRESSURE HELD UNTIL HEMOSTASIS AND PRESSURE DRESSING APPLIED BY DAY SHIFT NURSE. PERSONAL BELONGINGS TO AND PATIENT. DISCHARGE INSTRUCTIONS AND PRESCRIPTIONS TAKEN WITH PATIENT IN FOLDER, DISCHARGE DONE BY DAY SHIFT NURSE. VITAL SIGNS STABLE. NO QUESTIONS AT THIS TIME. PATIENT WILL HAVE HOME HEALTH, ALREADY SET UP BY CASE MANAGEMENT. PATIENT ROLLED TO CAR IN WHEELCHAIR BY STAFF AND SAFELY INTO CAR WITH DRIVING. }
[2020-04-08] MEDS ORDERED: PANTOPRAZOLE SOD 40 MG TABEC PO SCH (07:30)
--- NOTE | 2020-05-03 20:30 | Operative Report ---
DATE OF PROCEDURE: 03/28/2020 SURGEON: Neil Melendez MD PREOPERATIVE DIAGNOSIS: Perforated viscus with septic. 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 OPERATION PERFORMED: Exploratory laparotomy, sigmoid colectomy, colostomy, and Silver's pouch. ANESTHESIA: General. COMPLICATIONS: None, except for hypertension. INDICATION: With the patient lying in bed in the supine position, under good general endotracheal anesthesia, the abdomen was prepped with Betadine solution and draped in the usual manner. A lower abdominal midline incision was made, carried down through the subcutaneous tissue down to the midline fascia. The midline fascia was opened and the abdomen was entered. Immediately upon entering the abdominal cavity, some purulent material was encountered and some foul smelling contents were found within the abdominal cavity. The patient had numerous adhesions to the pelvis where the small bowel was stuck to the pelvis and also to the cecum. Slowly and carefully, the small bowel was and removed from the pelvis and immediately a large amount of fecal material was encountered in the pelvis. The patient had a large perforation of the sigmoid colon with fecal material in the pelvis. 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 Some of the small bowel also appeared to have some radiation changes, but appeared to be viable. All of the fecal material was then scooped out of the pelvis. After this was done, the left colon was mobilized of the lateral gutter and was divided at this junction with the descending colon. Using the EnSeal device, the mesentery of the sigmoid colon was then slowly and carefully taken down all the way down to below the perforation. The perforation was then closed with a stapler and the specimen with a perforation was sent for pathological examination. After this was done, the abdomen was then copiously irrigated with many liters of saline solution, although a small bowel was and debrided from all the fibrinous material as well as could be done. Once this was all completed, the proximal colon at the level of the descending colon was mobilized to make sure that it reached without any tension for colostomy. After this was done, an opening was then made in the left mid abdomen and a cruciate incision was carried down through the fascia into the abdomen and the descending colon was brought out without any tension. After this was done, a Mundo-Easton drain was then left in the pelvis and brought out through a separate stab wound incision and the midline fascia was then closed in layers. The peritoneum was closed with a running suture of #1 Vicryl. The midline fascia was closed with a running suture of #1 Vicryl. Subcutaneous tissue was irrigated and drained with a quarter-inch Goldthwaite drain and closed with reinaldo. The colostomy was then matured using interrupted sutures of 3-0 Vicryl, giving us a nice diverted colostomy. Dressings and colostomy appliance were placed. Sponge, lap, and needle pack count was correct. The patient tolerated the procedure and returned to the recovery room in critical condition. MD MANUEL Salazar/GEOVANNA /[id number]
--- NOTE | 2020-05-04 08:38 | Consultation ---
DATE OF CONSULTATION: 03/27/2020 Surgical Consultation REASON FOR CONSULTATION: Peritonitis. HISTORY OF PRESENT ILLNESS: This 65-year-old female was admitted to the hospital after presenting to the emergency room complaining of a 3-day history of abdominal pain, which was becoming progressively worse associated with some nausea and vomiting. She has not had a bowel movement for 3 days and pain became progressively worse and for that reason, she came to the hospital for admission. PAST MEDICAL HISTORY: Remarkable for the fact that the patient has had cervical cancer and underwent radiation many years ago to the area. She also has had some bladder issues, secondary to the radiation. She has also undergone a previous left nephrectomy. MEDICATIONS: Please refer to MAR. ALLERGIES: NONE. REVIEW OF SYSTEMS: Otherwise unremarkable. PHYSICAL EXAMINATION: GENERAL: At the time that we saw the patient revealed a female, lying in bed, complaining of severe pain of the abdomen. She was under a low-grade fever. She was tachycardic and tachypneic. HEAD, EYES, EARS, NOSE, AND THROAT: Showed no acute inflammation. NECK: No nodes, masses, or bruits. LUNGS: Clear to auscultation. HEART: Regular rate and rhythm. ABDOMEN: Distended, diffusely tender with positive guarding and rebound present. Bowel sounds were hypoactive. EXTREMITIES: Good pulses bilaterally. A CT scan of the abdomen that was done showed the patient to have a pneumoperitoneum. ASSESSMENT: Acute surgical abdomen with perforated viscus and septic shock. PLAN: IV hydration, antibiotics, NG tube and Tony catheter, and emergent laparotomy. MD MANUEL Salazar/GEOVANNA /[id number]
== END 2020-04-07 19:51 | disposition home health service (06) | DRG 853 ==
LOC: ER 12:40 → UNDOADMIN 17:41 → ERHOLD 17:41 → OR 23:45 → ICU 03-28 02:52 → MED/SURG 03-30 21:00
PROVIDERS: ADMIT Surgery; ATTEND Surgery
PROC: 0DTN0ZZ Resection of Sigmoid Colon, Open Approach (ICD-10-PCS; principal; 2020-03-28)
PROC: 0D1N074 Bypass Sigmoid Colon to Cutaneous with Autologous Tissue Substitute, Open Approach (ICD-10-PCS; 2020-03-28)
PROC: 02HV33Z Insertion of Infusion Device into Superior Vena Cava, Percutaneous Approach (ICD-10-PCS; 2020-03-28)
DX: A41.9 Sepsis, unspecified organism (principal); K63.1 Perforation of intestine (nontraumatic); R65.21 Severe sepsis with septic shock; N17.9 Acute kidney failure, unspecified; E87.2 Acidosis; E87.1 Hypo-osmolality and hyponatremia; Z16.24 Resistance to multiple antibiotics; T81.49XA Infection following a procedure, other surgical site, initial encounter; E87.6 Hypokalemia; I12.9 Hypertensive chronic kidney disease with stage 1 through stage 4 chronic kidney disease, or unspecified chronic kidney disease; N18.3 Chronic kidney disease, stage 3 (moderate); T81.89XA Other complications of procedures, not elsewhere classified, initial encounter; Z85.53 Personal history of malignant neoplasm of renal pelvis; Z03.818 Encounter for observation for suspected exposure to other biological agents ruled out; E11.22 Type 2 diabetes mellitus with diabetic chronic kidney disease; E66.9 Obesity, unspecified; Z68.29 Body mass index [BMI] 29.0-29.9, adult; B95.2 Enterococcus as the cause of diseases classified elsewhere; B96.4 Proteus (mirabilis) (morganii) as the cause of diseases classified elsewhere; B96.20 Unspecified Escherichia coli [E. coli] as the cause of diseases classified elsewhere
CPT/HCPCS: 36415; 36555; 51700; 71045; 71046; 74018; 74176; 76770; 76857; 80048; 80053; 80061; 80307; 81001; 82550; 82553; 82948; 83036; 83540; 83605; 83690; 83735; 84100; 84443; 84466; 84484; 85025; 85610; 85730; 86850; 86900; 87040; 87071; 87075; 87086; 87186; 87205; 87635; 88307; 93005; 94640; 96361; 97139; 99251; 99285; J0610; J1100; J1170; J1756; J1940; J2270; J2405; J2543; J3010; J3475; J3480; J7030; J7070; J7121; Q0162

== ENCOUNTER 2020-05-26 16:04 | Inpatient (IN) | payer MEDICARE, OTHER ==
[~2020-05-26] VITALS: Ht 320 cm; Wt 75.4 kg
[~2020-05-26 16:04] MED LIST changes: +FLAGYL250 MG; +FLAGYL500 MG PO; +KEFLEX500 MG PO; +LIBRAX CAPSULE1 EACH PO; +METRONIDAZOLE500 MG PO; +SENNA LAXATIVE8.6 MG PO; +ULTRAM 50MG50 MG PO; +ULTRAM50 MG PO
[2020-05-26] MEDS ORDERED: SODIUM CHLORIDE 0.9% 1000ML 1,000 ML IV STA ×3 (16:56→19:01)
[2020-05-26] MEDS ORDERED: PANTOPRAZOLE 40 MG 10ML VIAL IV STA (16:56)
[2020-05-26 17:41] LABS: BASOPHILS % 0.3 % (0.0-1.0); HEMATOCRIT 27.2 % (34.2-44.1); HEMOGLOBIN 8.3 g/dL (12.0-16.0); INR 0.91; LYMPHOCYTES # (AUTO) 1.9 (1.0-3.2); LYMPHOCYTES % 15.5 % (18.0-39.1); MEAN CORPUSCULAR HEMOGLOBIN 27.8 pg (28-32); MEAN CORPUSCULAR HGB CONC 30.5 g/dL (31-35); MONOCYTES # (AUTO) 0.5 (0.2-0.8); MONOCYTES % 4.4 % (4.4-11.3); NEUTROPHILS # (AUTO) 9.4 (2.1-6.9); NEUTROPHILS % 78.5 % (38.7-80.0); PLATELET COUNT 450 x10e3/uL (140-360); PROTHROMBIN TIME 12.8 seconds (11.9-14.5); RED BLOOD COUNT 2.99 x10e6/uL (3.6-5.1); RED CELL DISTRIBUTION WIDTH 13.6 % (11.7-14.4)
[2020-05-26 17:42] LABS: PARTIAL THROMBOPLASTIN TIME 37.5 seconds (23.8-35.5)
[2020-05-26 17:49] LABS: ALBUMIN 2.4 g/dL (3.5-5.0); ALBUMIN/GLOBULIN RATIO 0.5 (0.8-2.0); ALKALINE PHOSPHATASE 133 IU/L (40-150); ANION GAP 20.8 mmol/L (8-16); BLOOD UREA NITROGEN 16 mg/dL (7-26); BUN/CREATININE RATIO 10 (6-25); CALCIUM 9.6 mg/dL (8.4-10.2); CARBON DIOXIDE 19 mmol/L (22-29); CHLORIDE 97 mmol/L (98-107); CREATININE, SERUM 1.64 mg/dL (0.57-1.11); EST GLOMERULAR FILTRATION RATE 31 ML/MIN (60-); GLUCOSE 97 mg/dL (74-118); POTASSIUM 3.8 mmol/L (3.5-5.1); SODIUM 133 mmol/L (136-145)
[2020-05-26 17:51] LABS: ALANINE AMINOTRANSFERASE < 6 IU/L (0-55); CREATINE KINASE < 7 IU/L (29-168)
[2020-05-26] MEDS ORDERED: PIPER-TAZ 3.375 GM 50 ML IV SCH (18:00)
[2020-05-26] MEDS ORDERED: METRONIDAZOLE 500MG/NS 100ML 100 ML IV SCH (18:00)
--- NOTE | 2020-05-26 19:53 | Emergency Department Note ---
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 She says home health nurse noticed pus coming out and placed pa cking Historian: Patient Arrival Mode: Car Collection Supervisor Required: No Onset (how long ago): week(s) (1) Location: abdomen Quality: pain Radiation: Reports non-radiation Severity: moderate Onset quality: gradual Timing of current episode: constant Progression: worsening Chronicity: new Context: Denies recent illness Relieving factors: none Exacerbating factors: none Associated symptoms: Reports weakness Treatments prior to arrival: none (PEG CANNON MD) Past Medical/Family History Physician Review I have reviewed the patient's past medical and family history. Any updates have been documented here. (PEG CANNON MD) Past Medical History Recent Fever: No Clinical Suspicion of Infectio: Yes New/Unexplained Change in Ment: No Past Medical History: COPD, Cancer (cervical), Osteoarthritis Other Medical History: OVERACTIVE BLADDER CERVICAL CANCER nguyen barre Other Surgery: LEFT NEPHRECTOMY (PEG CANNON MD) Social History Smoking Cessation: Never Smoker Counseling Performed: No Alcohol Use: None Any Illegal Drug Use: No TB Exposure/Symptoms: No Physically hurt or threatened: No (PEG CANNON MD) Other Last Tetanus: UNKNOWN Any Pre-Existing Lines (PICC,: No (PEG CANNON MD) Review of Systems Review of Systems Constitutional: Reports no symptoms EENTM: Reports no symptoms Cardiovascular: Reports no symptoms Respiratory: Reports no symptoms Gastrointestinal: Reports as per HPI Genitourinary: Reports no symptoms Musculoskeletal: Reports no symptoms Integumentary: Reports no symptoms Neurological: Reports as per HPI Psychological: Reports no symptoms Endocrine: Reports no symptoms Hematological/Lymphatic: Reports no symptoms (PEG CANNON MD) Physical Exam Related Data Allergies: Coded Allergies: lithium (Verified Allergy, Intermediate, 03/27/20) Triage Vital Signs Vital Signs Date Time Temp Pulse Resp B/P (MAP) Pulse Ox O2 Delivery O2 Flow Rate FiO2 05/26/20 16:48 97.4 90 26 75/42 100 Room Air Vital signs reviewed: Yes (PEG CANNON MD) Physical Exam CONSTITUTIONAL Constitutional: Present well-developed, Present well-nourished HENT HENT: Present normocephalic, Present atraumatic, Present oropharynx clear/moist, Present nose normal HENT L/R: Present left ext ear normal, Present right ext ear normal EYES Eyes: Reports PERRL, Reports conjunctivae normal NECK Neck: Present ROM normal PULMONARY Pulmonary: Present effort normal, Present breath sounds normal CARDIOVASCULAR Cardiovascular: Present regular rhythm, Present heart sounds normal, Present capillary refill normal, Present normal rate GASTROINTESTINAL Abdominal: Present tender (moderate lower abd tenderness with ? ROSS drain hole packed with gauze and purulent discharge from hole), Present guarding; Absent rebound GENITOURINARY Genitourinary: Present exam deferred SKIN Skin: Present warm, Present dry MUSCULOSKELETAL Musculoskeletal: Present ROM normal NEUROLOGICAL Neurological: Present alert, Present oriented x 3, Present no gross motor or sensory deficits PSYCHOLOGICAL Psychological: Present mood/affect normal, Present judgement normal (PEG CANNON MD) Results Laboratory Result Diagram: 05/26/20 1706 05/26/20 1706 Laboratory Laboratory Tests Test 05/26/20 17:06 White Blood Count 11.95 x10e3/uL (4.8-10.8) Red Blood Count 2.99 x10e6/uL (3.6-5.1) Hemoglobin 8.3 g/dL (12.0-16.0) Hematocrit 27.2 % (34.2-44.1) Mean Corpuscular Volume 91.0 fL (81-99) Mean Corpuscular Hemoglobin 27.8 pg (28-32) Mean Corpuscular Hemoglobin Concent 30.5 g/dL (31-35) Red Cell Distribution Width 13.6 % (11.7-14.4) Platelet Count 450 x10e3/uL (140-360) Neutrophils (%) (Auto) 78.5 % (38.7-80.0) Lymphocytes (%) (Auto) 15.5 % (18.0-39.1) Monocytes (%) (Auto) 4.4 % (4.4-11.3) Eosinophils (%) (Auto) 0.0 % (0.0-6.0) Basophils (%) (Auto) 0.3 % (0.0-1.0) Neutrophils # (Auto) 9.4 (2.1-6.9) Lymphocytes # (Auto) 1.9 (1.0-3.2) Monocytes # (Auto) 0.5 (0.2-0.8) Eosinophils # (Auto) 0.0 (0.0-0.4) Basophils # (Auto) 0.0 (0.0-0.1) Absolute Immature Granulocyte (auto 0.15 x10e3/uL (0-0.1) Prothrombin Time 12.8 seconds (11.9-14.5) Prothromb Time International Ratio 0.91 Activated Partial Thromboplast Time 37.5 seconds (23.8-35.5) Sodium Level 133 mmol/L (136-145) Potassium Level 3.8 mmol/L (3.5-5.1) Chloride Level 97 mmol/L (98-107) Carbon Dioxide Level 19 mmol/L (22-29) Anion Gap 20.8 mmol/L (8-16) Blood Urea Nitrogen 16 mg/dL (7-26) Creatinine 1.64 mg/dL (0.57-1.11) Estimat Glomerular Filtration Rate 31 ML/MIN (60-) BUN/Creatinine Ratio 10 (6-25) Glucose Level 97 mg/dL (74-118) Lactic Acid Level 2.6 mmol/L (0.5-2.0) Calcium Level 9.6 mg/dL (8.4-10.2) Total Bilirubin 0.4 mg/dL (0.2-1.2) Aspartate Amino Transf (AST/SGOT) 8 IU/L (5-34) Alanine Aminotransferase (ALT/SGPT) < 6 IU/L (0-55) Alkaline Phosphatase 133 IU/L (40-150) Creatine Kinase < 7 IU/L (29-168) Creatine Kinase MB 0.40 ng/mL (0-5.0) Troponin I 0.010 ng/mL (0-0.300) Total Protein 7.6 g/dL (6.5-8.1) Albumin 2.4 g/dL (3.5-5.0) Globulin 5.2 g/dL (2.3-3.5) Albumin/Globulin Ratio 0.5 (0.8-2.0) Lab results reviewed: Yes (PEG CANNON MD) Imaging Imaging Comments ct follow up by Dr Recinos (PEG CANNON MD) Imaging results reviewed: Yes Impressions CTR ABD/PELVIS IMPRESSION: 1. Limited study without intravenous contrast. 2. Postsurgical changes of partial colectomy and left abdominal colostomy formation. There is wall thickening of the rectal pouch, which could be postsurgical versus infectious/inflammatory proctitis. 3. Bladder is collapsed, containing air. There is also air and fluid within vaginal cuff. Fistulous connection cannot be excluded. 4. Focal collection of air and contrast in the lower abdominal wall laparotomy scar. The origin of contrast is unknown. 5. Distended gallbladder as well as common bile duct dilatation. If there is concern for biliary obstruction, MRCP can be obtained for further evaluation. 6. Left nephrectomy. Mild right hydronephrosis, likely due to distal inflammatory or postsurgical process in the pelvis. Signed by: Dr. Bennett Mohr MD on 05/26/2020 8:43 PM (ALEX FLOWER MD) Procedures 12 Lead ECG Interpretation ECG Interpretation : ECG: ECG 1 Collection Supervisor: Interpreted by ED physician Date: May 26, 2020 Time: 17:08 Rhythm: sinus rhythm Rate: tachycardia (113) QRS axis: left ST segments normal: Yes T wave inversion: aVR, aVL Other findings: LVH Clinical Impression: abnormal ECG (non-specific ST-TW changes) (PEG CANNON MD) Assessment & Plan Medical Decision Making MDM CBC, CHEM, CARDIACS, LACTIC, OSEI-CX'S, ECG, UA, CT ABD/PELVIS - R/O SEPSIS, INTR AABD INFECTION/ABSCESS, STEMI/NSTEMI, ELECTROLYTE ABNL, RENAL FAILURE IVF RESUSCITATION, IV ANTIBIOTICS (PEG CANNON MD) Reassessment Reassessment LIKELY SEPSIS WITH ABDOMINAL SOURCE, POSSIBLE SEPTIC SHOCK GIVEN HYPOTENSION BLOOD CX'S, LACTIC, IVF'S AND ANTIBIOTICS ORDERED ON ARRIVAL I PERFORMED A VOLUME REASSESSMENT REPORT TO ONCOMING ER MD, DR FLOWER, WILL F/U 2ND LACTATE AND CT ABD/PELVIS I SPOKE WITH DR Fabian NUÑEZ AND ALSO DR STANLEY FOR ADMISSION (PEG CANNON MD) Assessment & Plan Final Impression: (1) Acute renal insufficiency (2) Sepsis (3) Abdominal pain (PEG CANNON MD) Depart Disposition: ADMITTED Last Vital Signs Date Time Temp Pulse Resp B/P (MAP) Pulse Ox O2 Delivery O2 Flow Rate FiO2 05/26/20 16:48 97.4 90 26 75/42 100 Room Air (PEG CANNON MD) Home Meds Active Scripts Tramadol Hcl (ULTRAM) 50 Mg Tablet, 50 MG PO Q8HR PRN for PAIN, #25 TAB Prov:VENUS STANLEY MD 04/07/20 Cephalexin Monohydrate (KEFLEX) 500 Mg Capsule, 500 MG PO Q12H, #14 Prov:VENUS STANLEY MD 04/07/20 Metronidazole (FLAGYL) 500 Mg Tablet, 500 MG PO TID for 7 Days Prov:VENUS STANLEY MD 04/07/20 Sennosides (SENNA LAXATIVE) 8.6 Mg Tablet, 8.6 MG PO BID PRN for CONSTIPATION, #30 Prov:VENUS STANLEY MD 04/07/20 Reported Medications Chlordiazepoxide/Clidinium Br (LIBRAX CAPSULE) 1 Each Capsule, 1 CAP PO Q6H, CAP 03/31/20 Medications in the ED Pantoprazole Sodium 40 mg ONCE STAT IV Last administered on 05/26/20at 19:00; Admin Dose 40 MG; Start 05/26/20 at 16:56; Stop 05/26/20 at 17:35; Status DC Sodium Chloride 1,000 ml @ 0 mls/hr Q0M STAT IV Last administered on 05/26/20at 17:45; Admin Dose 999 MLS/HR; Start 05/26/20 at 16:56; Stop 05/26/20 at 17:03; Status DC Sodium Chloride 1,000 ml @ 0 mls/hr Q0M STAT IV Last administered on 05/26/20at 18:43; Admin Dose 999 MLS/HR; Start 05/26/20 at 16:56; Stop 05/26/20 at 17:03; Status DC Piperacillin Sod/ Tazobactam Sod 50 ml @ 50 mls/hr Q6H IV Last administered on 05/26/20at 19:00; Admin Dose 50 MLS/HR; Start 05/26/20 at 18:00; Stop 06/02/20 at 17:59 Metronidazole/ Sodium Chloride 100 ml @ 100 mls/hr Q6H IV Last administered on 05/26/20at 19:00; Admin Dose 100 MLS/HR; Start 05/26/20 at 18:00; Stop 06/02/20 at 17:59 Sodium Chloride 1,000 ml @ 0 mls/hr Q0M STAT IV Last administered on 05/26/20at 19:28; Admin Dose 1,000 MLS/HR; Start 05/26/20 at 19:01; Stop 05/26/20 at 19:03; Status DC (PEG CANNON MD) PEG CANNON MD May 26, 2020 19:53 ALEX FLOWER MD May 26, 2020 20:58
[2020-05-26] MEDS ORDERED: VANCOMYCIN 1GM/NS 250 ML 250 ML IV ONE (20:00)
--- NOTE | 2020-05-26 20:46 | Diagnostic Imaging Report ---
EXAM: CT Abdomen and Pelvis WITHOUT contrast INDICATION: ^RECENT PERFORATED VISCUS SURGERY, PURULENT DS/C FROM WOUND ^[id number] ^1956 COMPARISON: CT dated 03/27/2020 TECHNIQUE: Abdomen and pelvis were scanned utilizing a multidetector helical scanner from the lung base to the pubic symphysis without administration of IV contrast. Absence of intravenous contrast decreases sensitivity for detection of focal lesions and vascular pathology. Coronal and sagittal reformations were obtained. Routine protocol was performed. IV CONTRAST: None ORAL CONTRAST: None COMPLICATIONS: None RADIATION DOSE: Total DLP: 646.88 mGy*cm Estimated effective dose: (DLP x 0.015 x size factor) mSv CTDIvol has been reviewed. It is below the limits set by the Radiation Protocol Committee (RPC). FINDINGS: LINES and TUBES: None. LOWER THORAX: Mild dependent atelectasis. Right middle lobe linear atelectasis/scarring. Hypodense blood pool, indicative of anemia. HEPATOBILIARY: Unenhanced liver is unremarkable. Common bile duct dilatation up to 1.5 cm. GALLBLADDER: Distended. No radio-opaque stones or sludge. No wall thickening. SPLEEN: No splenomegaly. PANCREAS: No focal masses or ductal dilatation. ADRENALS: No adrenal nodules KIDNEYS/URETERS: Left nephrectomy. Mild right hydronephrosis. Limited for evaluation of right renal parenchyma without intravenous contrast. No stones. Areas of right renal superior pole cortical scarring. GI TRACT: Postsurgical changes of partial left colectomy and left colostomy formation. No evidence of bowel obstruction. Rectal wall thickening. PELVIC ORGANS/BLADDER: Hysterectomy. Bladder is less, containing air is also air and fluid within vaginal cuff (series 2, image 81). LYMPH NODES: No lymphadenopathy. VESSELS: There is mild atherosclerotic disease in the aorta and major arterial branches. PERITONEUM / RETROPERITONEUM: No free air. Small amount of presacral and pelvic free fluid, likely postsurgical. BONES: Generalized demineralization. Grade 1 anterolisthesis of L5 in relation to S1. SOFT TISSUES: Midline laparotomy scar, containing air and contrast in the inferior portion (series 2, image 62). IMPRESSION: 1. Limited study without intravenous contrast. 2. Postsurgical changes of partial colectomy and left abdominal colostomy formation. There is wall thickening of the rectal pouch, which could be postsurgical versus infectious/inflammatory proctitis. 3. Bladder is collapsed, containing air. There is also air and fluid within vaginal cuff. Fistulous connection cannot be excluded. 4. Focal collection of air and contrast in the lower abdominal wall laparotomy scar. The origin of contrast is unknown. 5. Distended gallbladder as well as common bile duct dilatation. If there is concern for biliary obstruction, MRCP can be obtained for further evaluation. 6. Left nephrectomy. Mild right hydronephrosis, likely due to distal inflammatory or postsurgical process in the pelvis. Signed by: Dr. Bennett Mohr MD on 05/26/2020 8:43 PM
--- NOTE | 2020-05-26 20:55 | NUR ---
Attempted to straight cath patient and patient had just urinated on brief. Pure wick applied at this time.
[2020-05-26 21:28] LABS: BILIRUBIN,URINE NEGATIVE (NEGATIVE); CLARITY,URINE SL CLOUDY (CLEAR); COLOR,URINE YELLOW (YELLOW); KETONES,URINE 1+ (NEGATIVE); LEUKOCYTE ESTERASE ,URINE MODERATE (NEGATIVE); NITRITE,URINE NEGATIVE (NEGATIVE); PROTEIN,URINE DIPSTICK TRACE (NEGATIVE); URINE UROBILINOGEN 0.2 mg/dL (0.2 - 1)
[2020-05-26] MEDS: SODIUM CHLORIDE 0.9% 1000ML 1,000 ML IV SCH (21:46)
[2020-05-26 21:53] LABS: BACTERIA,URINE MANY /HPF; EPITHELIAL CELLS,URINE MODERATE /LPF
[2020-05-26] MEDS: CLINDAMYCIN PHOS 900MG/ 50ML 50 ML IV SCH (22:35)
--- NOTE | 2020-05-26 23:32 | NUR ---
Report to ROBERT Morrow
[2020-05-27] VITALS (9 sets, daily range): BP systolic 100–118; BP diastolic 48–88
[2020-05-27] MEDS ORDERED: PIPERACILLIN/TAZO 2.25 GM 50 ML IV SCH (00:01)
[2020-05-27] MEDS: ONDANSETRON HCL INJ 2MG/ML 2ML 2 MG/ML VIAL IV PRN ×4 (00:51→21:19)
[2020-05-27] MEDS: SODIUM CHLORIDE 0.9% 1000ML 1,000 ML IV SCH ×3 (05:35→21:15)
--- NOTE | 2020-05-27 06:01 | NUR ---
H&PH&P cc: abdominal pain HPI: 65yoF, PCPDrMelani, who was treated at our facility for ruptured sigmoid colon and multiple organism infected abdominal wound, and septic shock, now here for worsening abdominal pain from wound and drainage; Pt has been receiving Home health with packing of wound, but due to worsening,came to hospital; Pain was 10/10 abdominal wound. PMH: cervical cancer s/p XRT,s/p left nephrectomy in 1998, current smoker, Rupture of Sigmoid colon- s/p surgical resection and colostomy placement, Septic shock, ENerococcus and E.coli and Proteus infected Abdominal wound, Hyponatremia, NISHI, Metabolic acidosis, Hyperglycemia, Overweight PSHx: left nephrectomy 1998 Allergies; see emr FH/SH; 1/2ppd cigs; no illicits meds; see MAR ROS: no f/c/s/STEWART/cp/skin rash/back pain/dizziness/focal limb weakness/confusion v/s; revd PE tired appearing anicteric ns1s2 mod bs soft nd; mid abdominal wound with packing and tenderness at site; left colostomy in place with stool no leg edema a&ox3; solano skin yuki flat affect labs/meds revd A/P: 65yoF Abdominal wound- LWC; IV abx; Sx re-eval; ABdominal pain- prn meds UTI- iv ABx SEPsis - IV abx; IVF NISHI- IVF Moderate anemia- anemia panel; blood as needed Physical deconditioning - PT Prop; scd; Dispo: f/u culture and sx plan Damaso Palma MD, PHD.
[2020-05-27] MEDS: CLINDAMYCIN PHOS 900MG/ 50ML 50 ML IV SCH ×3 (06:14→22:10)
[2020-05-27] MEDS: PIPERACILLIN/TAZO 2.25 GM 50 ML IV SCH ×3 (07:33→19:16)
[2020-05-27 07:37] LABS: BASOPHILS % 0.4 % (0.0-1.0); EOSINOPHILS % 0.1 % (0.0-6.0); LYMPHOCYTES # (AUTO) 1.1 (1.0-3.2); LYMPHOCYTES % 15.5 % (18.0-39.1); MEAN CORPUSCULAR HGB CONC 30.2 g/dL (31-35); MEAN CORPUSCULAR VOLUME 92.7 fL (81-99); MONOCYTES # (AUTO) 0.3 (0.2-0.8); MONOCYTES % 4.7 % (4.4-11.3); NEUTROPHILS # (AUTO) 5.5 (2.1-6.9); NEUTROPHILS % 78.3 % (38.7-80.0); PLATELET COUNT 337 x10e3/uL (140-360); RED BLOOD COUNT 2.32 x10e6/uL (3.6-5.1); RED CELL DISTRIBUTION WIDTH 13.9 % (11.7-14.4)
[2020-05-27 07:45] LABS: HEMATOCRIT 21.5 % (34.2-44.1); HEMOGLOBIN 6.5 g/dL (12.0-16.0)
[2020-05-27 07:47] LABS: ALBUMIN 1.8 g/dL (3.5-5.0); ALBUMIN/GLOBULIN RATIO 0.5 (0.8-2.0); ALKALINE PHOSPHATASE 102 IU/L (40-150); ANION GAP 14.8 mmol/L (8-16); BLOOD UREA NITROGEN 14 mg/dL (7-26); BUN/CREATININE RATIO 12 (6-25); CALCIUM 7.8 mg/dL (8.4-10.2); CARBON DIOXIDE 17 mmol/L (22-29); CHLORIDE 109 mmol/L (98-107); CREATININE, SERUM 1.16 mg/dL (0.57-1.11); EST GLOMERULAR FILTRATION RATE 47 ML/MIN (60-); GLUCOSE 68 mg/dL (74-118); POTASSIUM 3.8 mmol/L (3.5-5.1); SODIUM 137 mmol/L (136-145)
[2020-05-27 07:48] LABS: ALANINE AMINOTRANSFERASE < 6 IU/L (0-55)
[2020-05-27 07:49] LABS: CREATINE KINASE 87 IU/L (29-168)
--- NOTE | 2020-05-27 08:55 | NUR ---
Recvd patient from ER, AAOx3, Not in any distress, colostomy bag intact. Notified DR Palma regarding Hgb level -6.5, new orders recvd
[2020-05-27] MEDS ORDERED: SODIUM CHLORIDE 0.9% 250ML 250 ML IV ONE (09:00)
[2020-05-27 09:42] LABS: FERRITIN 675.15 ng/mL (4.63-204.00)
[2020-05-27] MEDS ORDERED: ALBUTEROL/IPRATROPIUM 3 ML NEB NEB PRN (10:00)
[2020-05-27 10:04] LABS: HEMATOCRIT 24.9 % (34.2-44.1); HEMOGLOBIN 7.4 g/dL (12.0-16.0)
[2020-05-27] MEDS ORDERED: SENNOSIDES 8.6 MG TAB PO PRN (12:15)
[2020-05-27] MEDS ORDERED: TRAMADOL HCL 50 MG TAB PO PRN (12:15)
[2020-05-27 13:21] LABS: CREATINE KINASE 14 IU/L (29-168)
--- NOTE | 2020-05-27 15:11 | Diagnostic Imaging Report ---
X-ray chest AP portable History: PICC line placement Comparison: 04/06/2020 Findings: Right arm route PICC line tip overlying SVC. This is a good position for use. Central airways unremarkable. Heart size normal. Prominent aorta. No pleural effusion. No pneumothorax. Previously seen right lung opacity has resolved. Old healed right rib fractures. Upper abdomen unremarkable. Impression: PICC line in a good position. Signed by: Triston Dominguez MD on 05/27/2020 3:08 PM
[2020-05-27] MEDS: MORPHINE SULFATE 2 MG/ML SYR 1ML IV PRN ×2 (15:46→18:54)
[2020-05-27] MEDS ORDERED: SODIUM CHLORIDE 0.9% 250ML 250 ML ONE ×2 (16:27→23:06)
--- NOTE | 2020-05-27 19:00 | NUR ---
RECEIVED PATIENT IN BEDSIDE SHIFT REPORT. PATIENT RESTING IN BED AT THIS TIME. NO PAIN REPORTED AT THIS TIME. NO S&S OF DISTRESS NOTED. BED LOCKED IN LOWEST POSITION, SIDE RAILS UPX2, CALL LIGHT IN REACH.
[2020-05-27 19:21] LABS: CREATINE KINASE 8 IU/L (29-168)
[2020-05-27] MEDS: HEPARIN SOD (PORCINE) 5,000 UNIT/ML VIAL SC SCH (21:00)
[2020-05-27] MEDS ORDERED: ZOLPIDEM TARTRATE 5 MG TAB PO PRN (21:00)
--- NOTE | 2020-05-27 23:30 | NUR ---
SECOND UNIT OF BLOOD STARTED AT THIS TIME. VERIFIED AT PATIENT'S BEDSIDE WITH AT, RN AT 2325. VITALS STABLE. THIS RN TO STAY IN PATIENT ROOM FOR 15 MINUTES TO MONITOR.
[2020-05-28] VITALS (18 sets, daily range): BP systolic 99–128; BP diastolic 48–97
[2020-05-28] MEDS: PIPERACILLIN/TAZO 2.25 GM 50 ML IV SCH ×4 (00:37→18:00)
[2020-05-28] MEDS: MORPHINE SULFATE 2 MG/ML SYR 1ML IV PRN ×6 (01:30→23:06)
--- NOTE | 2020-05-28 02:00 | NUR ---
SECOND UNIT OF BLOOD COMPLETED AT THIS TIME. NO S&S OF TRANSFUSION REACTION NOTED. PATIENT TOLERATED WELL. ADDITIONAL UNIT TO INFUSE.
[2020-05-28] MEDS ORDERED: SODIUM CHLORIDE 0.9% 250ML 250 ML ONE (02:20)
--- NOTE | 2020-05-28 02:35 | NUR ---
THIRD UNIT OF BLOOD STARTED AT THIS TIME. BLOOD VERIFIED AT PATIENT'S BEDSIDE WITH AT, RN. VITALS STABLE. THIS RN TO STAY IN PATIENT ROOM FOR 15 MINUTES TO MONITOR.
[2020-05-28] MEDS: ONDANSETRON HCL INJ 2MG/ML 2ML 2 MG/ML VIAL IV PRN ×3 (04:45→21:22)
[2020-05-28] MEDS: CLINDAMYCIN PHOS 900MG/ 50ML 50 ML IV SCH ×3 (05:58→23:00)
[2020-05-28] MEDS: MULTIVITAMINS/MINERALS TAB PO SCH (08:51)
[2020-05-28] MEDS: HEPARIN SOD (PORCINE) 5,000 UNIT/ML VIAL SC SCH ×2 (08:52→21:45)
[2020-05-28] MEDS: SODIUM CHLORIDE 0.9% 1000ML 1,000 ML IV SCH ×2 (10:35→20:49)
[2020-05-28] MEDS ORDERED: ONDANSETRON HCL 4 MG ORAL DISINTEGRATING TAB PO PRN (11:45)
[2020-05-28] MEDS ORDERED: PANTOPRAZOLE SOD 40 MG TABEC PO ONE (11:45)
--- NOTE | 2020-05-28 12:51 | NUR ---
IM- progress note O/N see below ROS: no f/c/s/STEWART/cp/skin rash/back pain/dizziness/focal limb weakness/confusion v/s; revd PE tired appearing anicteric ns1s2 mod bs soft nd; mid abdominal wound with packing and tenderness at site; left colostomy in place with stool no leg edema a&ox3; solano skin yuki flat affect labs/meds revd A/P: 65yoF Abdominal wound- LWC; IV abx; Sx re-eval; ABdominal pain- prn meds UTI- iv ABx SEPsis - IV abx; IVF NISHI- IVF Moderate anemia- anemia panel; blood as needed Physical deconditioning - PT Prop; scd; Dispo: f/u culture and sx plan 7-10 blood transfusion; check labs; cont IV abx Damaso Palma MD, PHD.
[2020-05-28 13:45] LABS: BASOPHILS # (AUTO) 0.1 (0.0-0.1); HEMATOCRIT 27.6 % (34.2-44.1); LYMPHOCYTES # (AUTO) 1.5 (1.0-3.2); LYMPHOCYTES % 23.5 % (18.0-39.1); MEAN CORPUSCULAR HEMOGLOBIN 28.2 pg (28-32); MEAN CORPUSCULAR HGB CONC 31.5 g/dL (31-35); MEAN CORPUSCULAR VOLUME 89.3 fL (81-99); MONOCYTES # (AUTO) 0.4 (0.2-0.8); MONOCYTES % 5.7 % (4.4-11.3); NEUTROPHILS # (AUTO) 4.3 (2.1-6.9); NEUTROPHILS % 68.5 % (38.7-80.0); PLATELET COUNT 278 x10e3/uL (140-360); RED BLOOD COUNT 3.09 x10e6/uL (3.6-5.1); RED CELL DISTRIBUTION WIDTH 14.6 % (11.7-14.4)
[2020-05-28 13:58] LABS: ANION GAP 8.6 mmol/L (8-16); BLOOD UREA NITROGEN 9 mg/dL (7-26); BUN/CREATININE RATIO 11 (6-25); CALCIUM 7.1 mg/dL (8.4-10.2); CARBON DIOXIDE 19 mmol/L (22-29); CHLORIDE 115 mmol/L (98-107); EST GLOMERULAR FILTRATION RATE > 60 ML/MIN (60-); GLUCOSE 100 mg/dL (74-118); HEMOGLOBIN 8.7 g/dL (12.0-16.0); POTASSIUM 3.6 mmol/L (3.5-5.1); SODIUM 139 mmol/L (136-145)
[2020-05-29] VITALS (7 sets, daily range): BP systolic 113–121; BP diastolic 59–89
[2020-05-29] MEDS: PIPERACILLIN/TAZO 2.25 GM 50 ML IV SCH ×5 (00:45→23:49)
[2020-05-29] MEDS: MORPHINE SULFATE 2 MG/ML SYR 1ML IV PRN ×6 (00:49→20:25)
[2020-05-29] MEDS: ONDANSETRON HCL INJ 2MG/ML 2ML 2 MG/ML VIAL IV PRN ×4 (00:51→16:38)
[2020-05-29] MEDS: SODIUM CHLORIDE 0.9% 1000ML 1,000 ML IV SCH ×3 (01:21→20:23)
--- NOTE | 2020-05-29 02:55 | NUR ---
TRAMADOL GIVEN ORDERED FOR BREAK THROUGH PAIN.
[2020-05-29] MEDS: CLINDAMYCIN PHOS 900MG/ 50ML 50 ML IV SCH ×3 (05:48→22:25)
[2020-05-29 06:16] LABS: BASOPHILS % 0.6 % (0.0-1.0); HEMATOCRIT 31.4 % (34.2-44.1); HEMOGLOBIN 10.1 g/dL (12.0-16.0); LYMPHOCYTES # (AUTO) 1.4 (1.0-3.2); LYMPHOCYTES % 22.1 % (18.0-39.1); MEAN CORPUSCULAR HEMOGLOBIN 29.1 pg (28-32); MEAN CORPUSCULAR HGB CONC 32.2 g/dL (31-35); MEAN CORPUSCULAR VOLUME 90.5 fL (81-99); MONOCYTES # (AUTO) 0.4 (0.2-0.8); MONOCYTES % 6.1 % (4.4-11.3); NEUTROPHILS # (AUTO) 4.3 (2.1-6.9); NEUTROPHILS % 69.3 % (38.7-80.0); PLATELET COUNT 309 x10e3/uL (140-360); RED BLOOD COUNT 3.47 x10e6/uL (3.6-5.1); RED CELL DISTRIBUTION WIDTH 14.5 % (11.7-14.4)
[2020-05-29 06:48] LABS: ALBUMIN 1.8 g/dL (3.5-5.0); ALBUMIN/GLOBULIN RATIO 0.5 (0.8-2.0); ALKALINE PHOSPHATASE 91 IU/L (40-150); ANION GAP 7.9 mmol/L (8-16); BLOOD UREA NITROGEN 7 mg/dL (7-26); BUN/CREATININE RATIO 7 (6-25); CARBON DIOXIDE 22 mmol/L (22-29); CHLORIDE 110 mmol/L (98-107); CREATININE, SERUM 0.94 mg/dL (0.57-1.11); EST GLOMERULAR FILTRATION RATE 59 ML/MIN (60-); GLUCOSE 89 mg/dL (74-118); POTASSIUM 3.9 mmol/L (3.5-5.1); SODIUM 136 mmol/L (136-145)
[2020-05-29 06:55] LABS: ALANINE AMINOTRANSFERASE < 6 IU/L (0-55)
--- NOTE | 2020-05-29 07:00 | NUR ---
RECEIVED PATIENT AWAKE RESTING IN BED NO S/S OF DISTRESS. BED LOW, WHEELS LOCKED, SIDE RAILS X2. CALL LIGHT IN REACH WILL CONTINUE TO MONITOR PATIENT.
[2020-05-29] MEDS: PANTOPRAZOLE SOD 40 MG TABEC PO SCH (08:33)
[2020-05-29] MEDS: MULTIVITAMINS/MINERALS TAB PO SCH (08:33)
[2020-05-29] MEDS: HEPARIN SOD (PORCINE) 5,000 UNIT/ML VIAL SC SCH ×2 (11:44→20:42)
--- NOTE | 2020-05-29 19:06 | NUR ---
IM- progress note O/N see below ROS: no f/c/s/STEWART/cp/skin rash/back pain/dizziness/focal limb weakness/confusion v/s; revd PE tired appearing anicteric ns1s2 mod bs soft nd; mid abdominal wound with packing and tenderness at site; left colostomy in place with stool no leg edema a&ox3; solano skin yuki flat affect labs/meds revd A/P: 65yoF Abdominal wound- LWC; IV abx; Sx re-eval; ABdominal pain- prn meds UTI- iv ABx SEPsis - IV abx; IVF NISHI- IVF Moderate anemia- anemia panel; blood as needed Physical deconditioning - PT Prop; scd; Dispo: f/u culture and sx plan 7-10 blood transfusion; check labs; cont IV abx 7-11 Hb better after 3 U PRBC; leukocytosis resolved; cont IV abx; Damaso Palma MD, PHD.
[2020-05-29] MEDS: PROMETHAZINE 12.5MG/ NACL 0.9% 12.5 MG/50 ML BAG IV PRN (20:23)
[2020-05-30] VITALS (7 sets, daily range): BP systolic 92–121; BP diastolic 48–81
[2020-05-30] MEDS: PROMETHAZINE 12.5MG/ NACL 0.9% 12.5 MG/50 ML BAG IV PRN ×4 (02:50→23:00)
[2020-05-30] MEDS: MORPHINE SULFATE 2 MG/ML SYR 1ML IV PRN ×5 (02:50→23:00)
[2020-05-30] MEDS: PIPERACILLIN/TAZO 2.25 GM 50 ML IV SCH ×3 (06:05→17:08)
[2020-05-30] MEDS: CLINDAMYCIN PHOS 900MG/ 50ML 50 ML IV SCH ×3 (06:05→22:28)
--- NOTE | 2020-05-30 06:51 | NUR ---
report given to day nurse. patient is resting in bed. bed is in lowest position and call light is within reach.
[2020-05-30] MEDS: MULTIVITAMINS/MINERALS TAB PO SCH (08:55)
[2020-05-30] MEDS: PANTOPRAZOLE SOD 40 MG TABEC PO SCH (08:55)
[2020-05-30] MEDS: HEPARIN SOD (PORCINE) 5,000 UNIT/ML VIAL SC SCH ×2 (09:20→21:00)
[2020-05-30] MEDS: SODIUM CHLORIDE 0.9% 1000ML 1,000 ML IV SCH ×2 (14:06→16:53)
--- NOTE | 2020-05-30 20:26 | NUR ---
IM- progress note O/N see below ROS: no f/c/s/STEWART/cp/skin rash/back pain/dizziness/focal limb weakness/confusion v/s; revd PE tired appearing anicteric ns1s2 mod bs soft nd; mid abdominal wound with packing and tenderness at site; left colostomy in place with stool no leg edema a&ox3; solano skin yuki flat affect labs/meds revd A/P: 65yoF Abdominal wound- LWC; IV abx; Sx re-eval; ABdominal pain- prn meds UTI- iv ABx SEPsis - IV abx; IVF NISHI- IVF Moderate anemia- anemia panel; blood as needed Physical deconditioning - PT Prop; scd; Dispo: f/u culture and sx plan 7-10 blood transfusion; check labs; cont IV abx 7-11 Hb better after 3 U PRBC; leukocytosis resolved; cont IV abx; 7-12 check labs tomorrow; d/c planning; Damaso Palma MD, PHD.
[2020-05-31] VITALS (8 sets, daily range): BP systolic 88–108; BP diastolic 47–58
[2020-05-31] MEDS: PIPERACILLIN/TAZO 2.25 GM 50 ML IV SCH ×4 (00:36→17:00)
[2020-05-31] MEDS: MORPHINE SULFATE 2 MG/ML SYR 1ML IV PRN ×8 (02:57→23:06)
[2020-05-31] MEDS: CLINDAMYCIN PHOS 900MG/ 50ML 50 ML IV SCH ×3 (05:49→23:06)
[2020-05-31] MEDS: SODIUM CHLORIDE 0.9% 1000ML 1,000 ML IV SCH ×3 (05:49→23:21)
[2020-05-31] MEDS: PROMETHAZINE 12.5MG/ NACL 0.9% 12.5 MG/50 ML BAG IV PRN ×4 (06:15→19:15)
[2020-05-31 06:34] LABS: BASOPHILS % 0.7 % (0.0-1.0); EOSINOPHILS # (AUTO) 0.3 (0.0-0.4); EOSINOPHILS % 4.9 % (0.0-6.0); HEMATOCRIT 28.2 % (34.2-44.1); HEMOGLOBIN 8.8 g/dL (12.0-16.0); LYMPHOCYTES # (AUTO) 1.8 (1.0-3.2); LYMPHOCYTES % 29.6 % (18.0-39.1); MEAN CORPUSCULAR HEMOGLOBIN 28.2 pg (28-32); MEAN CORPUSCULAR HGB CONC 31.2 g/dL (31-35); MEAN CORPUSCULAR VOLUME 90.4 fL (81-99); MONOCYTES # (AUTO) 0.4 (0.2-0.8); MONOCYTES % 6.6 % (4.4-11.3); NEUTROPHILS # (AUTO) 3.5 (2.1-6.9); NEUTROPHILS % 56.7 % (38.7-80.0); PLATELET COUNT 265 x10e3/uL (140-360); RED BLOOD COUNT 3.12 x10e6/uL (3.6-5.1); RED CELL DISTRIBUTION WIDTH 14.5 % (11.7-14.4)
[2020-05-31 06:54] LABS: ANION GAP 13.6 mmol/L (8-16); BLOOD UREA NITROGEN 5 mg/dL (7-26); BUN/CREATININE RATIO 6 (6-25); CARBON DIOXIDE 20 mmol/L (22-29); CHLORIDE 112 mmol/L (98-107); CREATININE, SERUM 0.77 mg/dL (0.57-1.11); EST GLOMERULAR FILTRATION RATE > 60 ML/MIN (60-); GLUCOSE 79 mg/dL (74-118); POTASSIUM 3.6 mmol/L (3.5-5.1); SODIUM 142 mmol/L (136-145)
[2020-05-31] MEDS ORDERED: MAGNESIUM SULFATE 2GM/50ML 50 ML IV ONE (07:30)
--- NOTE | 2020-05-31 09:10 | NUR ---
WENT TO SPEAK TO PT ABOUT SNF, SHE STATES SHE SPOKE WITH DR Fabian NATH AND HE WANTED HER HERE, SHE IS GOING TO CALL HER SIGNIFICANT OTHER AND SPEAK WITH HIM, GAVE CHOICES OF FACILITIES [facility], [facility]OC[facility]ARE IN [place] OR [facility].
[2020-05-31] MEDS: HEPARIN SOD (PORCINE) 5,000 UNIT/ML VIAL SC SCH ×2 (09:30→21:47)
[2020-05-31] MEDS: MULTIVITAMINS/MINERALS TAB PO SCH (09:30)
[2020-05-31] MEDS: PANTOPRAZOLE SOD 40 MG TABEC PO SCH (09:30)
[2020-05-31] MEDS: MAGNESIUM OXIDE 400 MG TAB PO SCH (16:16)
--- NOTE | 2020-05-31 22:03 | NUR ---
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 Damaso Palma MD, PHD.
[2020-06-01] VITALS (7 sets, daily range): BP systolic 97–122; BP diastolic 54–74
[2020-06-01] MEDS: PIPERACILLIN/TAZO 2.25 GM 50 ML IV SCH ×4 (01:39→15:15)
[2020-06-01] MEDS: MORPHINE SULFATE 2 MG/ML SYR 1ML IV PRN ×6 (02:15→17:15)
[2020-06-01] MEDS: CLINDAMYCIN PHOS 900MG/ 50ML 50 ML IV SCH ×2 (06:28→15:00)
[2020-06-01 06:49] LABS: BASOPHILS % 0.8 % (0.0-1.0); HEMATOCRIT 27.3 % (34.2-44.1); HEMOGLOBIN 8.4 g/dL (12.0-16.0); LYMPHOCYTES # (AUTO) 1.3 (1.0-3.2); MEAN CORPUSCULAR HEMOGLOBIN 28.2 pg (28-32); MEAN CORPUSCULAR HGB CONC 30.8 g/dL (31-35); MEAN CORPUSCULAR VOLUME 91.6 fL (81-99); MONOCYTES # (AUTO) 0.4 (0.2-0.8); MONOCYTES % 7.1 % (4.4-11.3); NEUTROPHILS # (AUTO) 3.3 (2.1-6.9); NEUTROPHILS % 65.3 % (38.7-80.0); PLATELET COUNT 259 x10e3/uL (140-360); RED BLOOD COUNT 2.98 x10e6/uL (3.6-5.1); RED CELL DISTRIBUTION WIDTH 14.6 % (11.7-14.4)
--- NOTE | 2020-06-01 07:00 | NUR ---
patient endorsed to next shift for continuity of care.
[2020-06-01 07:27] LABS: ANION GAP 13.5 mmol/L (8-16); BLOOD UREA NITROGEN 6 mg/dL (7-26); BUN/CREATININE RATIO 8 (6-25); CARBON DIOXIDE 20 mmol/L (22-29); CHLORIDE 115 mmol/L (98-107); CREATININE, SERUM 0.78 mg/dL (0.57-1.11); EST GLOMERULAR FILTRATION RATE > 60 ML/MIN (60-); GLUCOSE 89 mg/dL (74-118); MAGNESIUM 1.3 MG/DL (1.3-2.1); POTASSIUM 3.5 mmol/L (3.5-5.1); SODIUM 145 mmol/L (136-145)
[2020-06-01 07:30] LABS: CALCIUM 6.7 mg/dL (8.4-10.2)
[2020-06-01] MEDS: PROMETHAZINE 12.5MG/ NACL 0.9% 12.5 MG/50 ML BAG IV PRN ×2 (08:15→14:15)
[2020-06-01] MEDS: MAGNESIUM OXIDE 400 MG TAB PO SCH ×2 (08:29→15:15)
[2020-06-01] MEDS: PANTOPRAZOLE SOD 40 MG TABEC PO SCH (08:29)
[2020-06-01] MEDS: MULTIVITAMINS/MINERALS TAB PO SCH (08:29)
[2020-06-01] MEDS: HEPARIN SOD (PORCINE) 5,000 UNIT/ML VIAL SC SCH (08:30)
[2020-06-01] MEDS: ONDANSETRON HCL INJ 2MG/ML 2ML 2 MG/ML VIAL IV PRN (11:26)
--- NOTE | 2020-06-01 13:40 | NUR ---
SPOKE WITH PT ABOUT THE SNF ORDER, SHE STATES SHE HAD NOT SPOKEN WITH DR Fabian NUÑEZ, STATES ON [facility], SPOKE WITH DR Fabian NATH, HE CONFIRMED HER HOME HEALTH AND STATED HE WILL GO SPEAK WITH HER.
--- NOTE | 2020-06-01 15:00 | NUR ---
Notified Dr. Palma that Dr. Melendez said patient can go home today and on "antibiotics of Dr. Palma choice". Addendum: 06/01/20 at 1909 by Fabiola Streeter RN Dr. Palma stated, " OK I will take a look at it". No new orders received at this time.
--- NOTE | 2020-06-01 15:05 | NUR ---
Dr. Melendez is here. He changed the patient's dressing. He stated she can discharge today back home and continue with same orders with home health and patient understands to follow up with him in the office.
[2020-06-01] MEDS: SODIUM CHLORIDE 0.9% 1000ML 1,000 ML IV SCH (15:35)
--- NOTE | 2020-06-01 19:00 | NUR ---
yvonne Hicks endorsed that she gave iv pain medication and nausea medication. Patient confirmed she received iv pain medication and nausea medication at about 5pm. Addendum: 06/02/20 at 1052 by Fabiola Streeter RN Note: I, Fabiola Streeter RN confirmed that I gave patient IV pain medication, 2mg Morphine at 1715, but did not give Phenergan at that time. Phenergan was pulled then realized it wasnt due at that time and was wasted. This is reflected in the [facility] under wasted medications.
[2020-06-01] MEDS ORDERED: TUMS300 MG PO (19:34)
[2020-06-01] MEDS ORDERED: CLINDAMYCIN HC150 MG PO (19:34)
[2020-06-01] MEDS ORDERED: PROTONIX40 MG/ML PO (19:34)
[2020-06-01] MEDS ORDERED: CEFUROXIME250 MG PO (19:34)
--- NOTE | 2020-06-01 19:36 | NUR ---
D/C Summary Principal Dx: Abdominal wound- LWC; IV abx; Sx re-eval; ABdominal pain- prn meds UTI- iv ABx SEPsis - IV abx; IVF NISHI- IVF Moderate anemia- anemia panel; blood as needed Physical deconditioning - PT Secondary Dx: Prop; scd; Dispo: f/u culture and sx plan 7-10 blood transfusion; check labs; cont IV abx 7- Hb better after 3 U PRBC; leukocytosis resolved; cont IV abx; 7-12 check labs tomorrow; d/c planning; 05-31 d/c planning; home with HH vs SNF. d/c home with HH/PT f/u pcp 2 days and 1 week d/c>35mins stable Damaso Palma MD, PHD.
--- NOTE | 2020-06-01 21:09 | NUR ---
Patient discharged and left unit at this time, Dr. Palma received [facility] infor and stated will call in appropriate rx. Patient confirmed that she has a hh and pt at home and will call them to come when she gets home, patient states her is at home and will come and pick her up, she also stated her helps her with adls and so can wait for pt and hh to come in later within the week. Patient denied concerns regarding discharge. picc line was removed as per order and pressure applied to site, no bleeding noted.
--- NOTE | 2020-06-02 13:20 | NUR ---
Called and spoke with Hiral at [facility]. States they have already reached out to pt to resume services. Clinicals and order faxed to [phone] /
== END 2020-06-01 22:01 | disposition home or self-care (01) | DRG 863 ==
LOC: ER 19:30 → ERHOLD 20:10 → MED/SURG2 05-27 08:40
PROVIDERS: ADMIT Internal Medicine; ATTEND Internal Medicine
PROC: 02HV33Z Insertion of Infusion Device into Superior Vena Cava, Percutaneous Approach (ICD-10-PCS; principal; 2020-05-27)
PROC: 30243N1 Transfusion of Nonautologous Red Blood Cells into Central Vein, Percutaneous Approach (ICD-10-PCS; 2020-05-27)
DX: T81.44XA Sepsis following a procedure, initial encounter (principal); N39.0 Urinary tract infection, site not specified; N17.9 Acute kidney failure, unspecified; Z85.41 Personal history of malignant neoplasm of cervix uteri; Z90.5 Acquired absence of kidney; F17.210 Nicotine dependence, cigarettes, uncomplicated; Z93.3 Colostomy status; D64.9 Anemia, unspecified; Z11.59 Encounter for screening for other viral diseases; J44.9 Chronic obstructive pulmonary disease, unspecified; R10.9 Unspecified abdominal pain
CPT/HCPCS: 36415; 36569; 71045; 74176; 80048; 80053; 81001; 82270; 82550; 82553; 82728; 83540; 83605; 83735; 84100; 84466; 84484; 85014; 85018; 85025; 85610; 85730; 86850; 86900; 86920; 87040; 87086; 93005; 97139; 99284; J1644; J2270; J2405; J2543; J2550; J3370; J3475; J7030; J7050; P9016; Q0162; U0002

== ENCOUNTER 2025-01-29 14:36 | Emergency (ER) | payer MEDICARE ==
[~2025-01-29] VITALS: Ht 170.2 cm; Wt 83.9 kg
[~2025-01-29 14:36] MED LIST changes: +ARICEPT5 MG PO; +ASPIRIN81 MG PO; +CEFUROXIME250 MG PO; +CLINDAMYCIN HC150 MG PO; +PROTONIX40 MG/ML PO; +TUMS300 MG PO
[2025-01-29] MEDS ORDERED: DICYCLOMINE HCL20 MG PO (16:26)
[2025-01-29] MEDS: ACETAMINOPHEN 325 MG TAB PO ONE (16:34)
[2025-01-29 16:59] LABS: BASOPHILS # (AUTO) 0.1 (0.0-0.1); BASOPHILS % 0.5 % (0.0-1.0); HEMATOCRIT 33.6 % (34.2-44.1); LYMPHOCYTES % 9.5 % (18.0-39.1); MEAN CORPUSCULAR HEMOGLOBIN 30.6 pg (28-32); MEAN CORPUSCULAR HGB CONC 32.7 g/dL (31-35); MEAN CORPUSCULAR VOLUME 93.6 fL (81-99); MONOCYTES # (AUTO) 0.7 (0.2-0.8); NEUTROPHILS # (AUTO) 9.2 (2.1-6.9); NEUTROPHILS % 83.5 % (38.7-80.0); PLATELET COUNT 266 x10e3/uL (140-360); RED BLOOD COUNT 3.59 x10e6/uL (3.6-5.1); RED CELL DISTRIBUTION WIDTH 12.5 % (11.7-14.4); WHITE BLOOD COUNT 10.97 x10e3/uL (4.8-10.8)
[2025-01-29 17:28] LABS: ALBUMIN 2.7 g/dL (3.5-5.0); ALBUMIN/GLOBULIN RATIO 0.5 (0.8-2.0); ANION GAP 17.4 mmol/L (8-16); BILIRUBIN,TOTAL 0.8 mg/dL (0.2-1.2); CALCIUM 9.1 mg/dL (8.4-10.2); CREATININE, SERUM 1.29 mg/dL (0.57-1.11); TOTAL PROTEIN 7.8 g/dL (6.5-8.1)
[2025-01-29 17:30] LABS: POTASSIUM 3.4 mmol/L (3.5-5.1)
[2025-01-29] MEDS ORDERED: HYDROCODON-ACE1 EA12 PO ×2 (18:05→19:24)
[2025-01-29] MEDS ORDERED: PREDNISONE20 MG PO (18:05)
[2025-01-29] MEDS ORDERED: CLEOCIN HCL300 MG PO (18:05)
[2025-01-29] MEDS ORDERED: COLCRYS0.6 MG PO (18:05)
[2025-01-29 18:07] VITALS: PULSE 80; RESP 18; TEMP 98.6
[2025-01-29] MEDS ORDERED: FLORASTOR250 MG PO (18:11)
[2025-01-29] MEDS: METHYLPREDNISOLONE SOD SUCC 125 MG/2ML VIAL IV ONE (18:16)
[2025-01-29 18:29] VITALS: BP 115/54; PULSE 67; RESP 18; TEMP 98.4; O2SAT 99
== END 2025-01-29 18:39 | disposition home or self-care (01) ==
LOC: ER 15:04
DX: M79.672 Pain in left foot (principal); L03.116 Cellulitis of left lower limb; J44.9 Chronic obstructive pulmonary disease, unspecified; N32.81 Overactive bladder; Z85.41 Personal history of malignant neoplasm of cervix uteri; Z93.3 Colostomy status
CPT/HCPCS: 36415; 80053; 84550; 85025; 99284; J2919